=== PATIENT | female | born 1980 | race Caucasian/White ===

== ENCOUNTER 2022-07-22 12:08 | Emergency (ER) | payer BC, SELFPAY ==
[2022-07-22 12:29] VITALS: BP 155/92; PULSE 90; RESP 20; TEMP 36.7; O2SAT 100; BMI 45.3
--- NOTE | 2022-07-22 14:49 | XR_ITS ---
The [address] [address] Patient Name: RUTH PEDROZA MRN: [id number] date: 1980 Sex: F Assigned Patient Location: ER Current Patient Location: ER Accession/Order Number: [id number] Exam Date: 07/22/2022 15:04 Report Date: 07/22/2022 15:38 At the request of: AURELIANO CHAVEZ Procedure: XR knee AMY 3V STUDY: XR knee AMY 3V, [id number] HISTORY: pain COMPARISON: None FINDINGS: Right knee: No acute fracture, dislocation, or suspicious osseous lesion. Mild tricompartmental osteophytosis. No knee joint effusion. Left knee: No acute fracture, dislocation, or suspicious osseous lesion. Mild joint space narrowing and mild/moderate proptosis of the medial compartment. Mild osteophytosis of the lateral and patellofemoral compartments. No knee joint effusion. IMPRESSION: 1. No acute osseous abnormality. 2. Mild osteoarthritis of the right knee. 3. Mild/moderate osteoarthritis of the left knee, most notable in the medial compartment. Electronically authenticated by: CHITO MCCOY Date: 07/22/2022 15:38
--- NOTE | 2022-07-22 14:50 | ED.LOWEXI1 ---
HPI - Extremity Injury (Lower) General Chief Complaint: Extremity Injury, Lower Stated Complaint: lower extremity pain both knees Time Seen by Provider: 07/22/22 14:49 Source: patient Mode of arrival: walk-in Limitations: no limitations History of Present Illness HPI Narrative: Patient presents to emergency department complaining of bilateral knee pain. Patient states she saw her primary care doctor regarding the knee pain a month ago and had injections of prednisone for bursitis. She states it helped for about a week and then the pain returned and now it is out of control. Pain is worse on the left knee. She denies any trauma. She denies any edema, fever, chills. She has taken Tylenol and Motrin [id number] without any relief. She denies any paresthesias, or weakness. She is able to bear weight but states that it hurts. Pain is not worse when she is trying to climb steps, or go down steps. Related Data Previous Rx's Medication Instructions Recorded hydrocodone 5 mg-acetaminophen 325 1 tab PO Q6H PRN pain #10 tabs 07/22/22 mg tablet ketorolac 10 mg tablet 10 mg PO Q8H PRN pain 5 days #15 07/22/22 tabs Allergies Allergy/AdvReac Type Severity Reaction Status Date / Time lamotrigine [From Lamictal] Allergy Severe Rash Verified 07/22/22 12:29 Penicillins Allergy Severe Rash Verified 07/22/22 12:29 Review of Systems ROS Narrative ROS: Unless otherwise stated in this report the patient's positive and negative responses for review of systems for constitutional, eyes, ENT, cardiovascular, respiratory, gastrointestinal, neurological, , musculoskeletal and integument systems and related systems to the presenting problem are either stated in the history of present illness or were not pertinent or were negative for the symptoms and/or complaints related to the presenting medical problem. PFSH PFSH Social History Smoking status: Former smoker Exam Narrative Exam Narrative: Vital signs reviewed and nurse's notes. The patient is not hypoxic. General: obese, Alert, no acute distress, patient resting comfortably Skin: warm, intact, no pallor noted Head: Normocephalic, atraumatic Eye: Normal conjunctiva Respiratory: No acute distress Musculoskeletal: No evidence of deformity to Bilateral knees. There is amount of swelling. There is no ecchymosis. No erythema or warmth noted. DP and PT pulses are intact 2+. Normal sensation, normal capillary refill less than 2 seconds. There is no cyanosis or mottling noted. The patient has tenderness to of the right knee. The patient has no laxity with varus or valgus stressing. The patient has negative anterior drawer and Mile testing. The patient was able to flex and extend although with pain. Patient was able to extend leg off the cart without difficulty. No tenderness noted to the 5th MT, midfoot, ankle or proximal fibular area. There is no pain with calcaneal squeeze, achilles tendon is intact and no defect is palpated. The patient has no pelvic instability. The patient has no shortening or rotation noted to the bilateral lower extremities. Neurological: alert and orient x4, normal sensory and motor observed. Psychiatric: Cooperative Constitutional Vital Signs - 24 hr 07/22/22 12:29 Temperature 98.1 F Pulse Rate [Monitor] 90 Respiratory Rate 20 Blood Pressure [Left Arm] 155/92 H Pulse Oximetry 100 Oxygen Delivery Method Room Air Course Vital Signs Vital signs: Vital Signs Temperature 98.1 F 07/22/22 12:29 Pulse Rate 90 07/22/22 12:29 Respiratory Rate 20 07/22/22 12:29 Blood Pressure 155/92 H 07/22/22 12:29 Pulse Oximetry 100 07/22/22 12:29 Oxygen Delivery Method Room Air 07/22/22 12:29 Temperature 98.1 F 07/22/22 12:29 Pulse Rate 90 07/22/22 12:29 Respiratory Rate 20 07/22/22 12:29 Blood Pressure 155/92 H 07/22/22 12:29 Pulse Oximetry 100 07/22/22 12:29 Oxygen Delivery Method Room Air 07/22/22 12:29 MDM - Extremity Injury (Lower) MDM Narrative Medical decision making narrative: X-rays were ordered. X-rays show arthritis. All results were discussed with patient. Oarrs was checked and is appropriateTo write a short course of analgesics. The patient will follow up with primary care doctor. At this time the patient is without objective evidence of an acute process requiring hospitalization or inpatient management. The patient has remained hemodynamically stable. No additional indication for emergent studies at this time. I answered all questions. Discussed discharge instructions including standard anticipatory guidance and what should prompt a return to the emergency department, including if they get worse are not getting better or develops any new or concerning symptoms. I've given them specific time frame in which to follow-up, and who to follow-up with. The patient demonstrates understanding. Patient is nontoxic and stable for discharge with outpatient follow-up. This note was created with the assistance of a speech recognition program. Although the intention is to generate documents that actually reflects the content of the visit, no guarantees can be provided that every mistake has been identified and corrected by editing. Differential Diagnosis Differential diagnosis: Likely acute internal derangement of knee, fracture of femur and fracture of hip Discharge Plan Discharge Chief Complaint: Extremity Injury, Lower Clinical Impression: Osteoarthritis Patient Disposition: Home, Self-Care Time of Disposition Decision: 15:52 Condition: Good Prescriptions / Home Meds: New ketorolac 10 mg tablet 10 mg PO Q8H PRN (Reason: pain) 5 Days Qty: 15 0RF hydrocodone-acetaminophen 5-325 mg tablet 1 tab PO Q6H PRN (Reason: pain) Qty: 10 0RF Instructions: Osteoarthritis (ED) Stand Alone Forms: Portal Instructions Referrals: KRISTA CALLOWAY [Primary Care Provider] - 1 week Discharge Date/Time: 07/22/22 16:47
[2022-07-22] MEDS: HYDROCODONE/ACETAMINOPHEN 5-325 MG TABLET 1 TAB PO (15:04)
[2022-07-22 16:34] VITALS: BP 150/106; PULSE 84; RESP 14; O2SAT 99
== END 2022-07-22 16:47 | disposition home or self-care (01) ==
PROVIDERS: Emergency Provider Emergency Medicine; PCP Family Medicine
DX: M19.90 Unspecified osteoarthritis, unspecified site (principal); E66.9 Obesity, unspecified; Z87.891 Personal history of nicotine dependence; M17.0 Bilateral primary osteoarthritis of knee
CPT/HCPCS: 73562; 99283

== ENCOUNTER 2022-12-31 10:14 | Emergency (ER) | payer SELFPAY ==
[2022-12-31 10:20] VITALS: BP 150/77; PULSE 100; RESP 18; TEMP 36.7; O2SAT 98; BMI 44.6
[2022-12-31 11:01] VITALS: BP 148/87; PULSE 92; RESP 18; O2SAT 96
[2022-12-31 11:18] LABS: SARS-CoV-2 Ag NEGATIVE (NEGATIVE)
[2022-12-31 11:19] LABS: Influenza Virus A Antigen Negative; Influenza Virus B Antigen Negative; Internal Control Within Normal Limits
--- NOTE | 2022-12-31 11:32 | ED.URI1 ---
HPI - URI/Sore Throat General Chief Complaint: Upper Respiratory Infection Stated Complaint: URTI Time Seen by Provider: 12/31/22 10:20 Source: patient Limitations: no limitations History of Present Illness HPI Narrative: 5 days of nasal congestion, running nose, sinus drainage the persists despite trying jennifer seltzer prep, mucinex, flonase. No fever or chills but she admits to fatigue and muscle aches. No GI or symptoms. She is concerned that the infection might develop into asthmatic bronchitis . Related Data Previous Rx's Medication Instructions Recorded ketorolac 10 mg tablet 10 mg PO Q8H PRN pain 5 days #15 07/22/22 tabs cetirizine 5 mg-pseudoephedrine ER 1 tab PO Q12H PRN nasal congestion 12/31/22 120 mg tablet,extended #14 tabs release,12hr (Zyrtec-D) Allergies Allergy/AdvReac Type Severity Reaction Status Date / Time lamotrigine [From Lamictal] Allergy Severe Rash Verified 07/22/22 12:29 Penicillins Allergy Severe Rash Verified 07/22/22 12:29 PFSH PFSH Social History Smoking status: Former smoker Exam Narrative Exam Narrative: Nurses notes and vital signs reviewed and patient is not hypoxic. afebrile General: Well-appearing and in no apparent distress. Skin: Warm, dry, no pallor noted. No rash. Head: Normocephalic, atraumatic. Neck: Supple, non-tender. Eye: Pupils are equal, round and EOMI. No scleral icterus. Ears, Nose, Mouth, and Throat: TM are clear, moderate nasal mucosal hypertrophy. Oral mucosa is moist, no posterior oropharynx erythema, uvula is mid-line, post-nasal drip noted. Cardiovascular: Regular Rate and Rhythm without murmur, gallop or rub. Respiratory: No accessory muscle use or respiratory distress. Lungs are clear to auscultation, no wheezing, rales or rhonchi Musculoskeletal: normal ROM Neurological: A&O x4. No cranial nerve dysfunction observed. No truncal ataxia. Moves all extremities. Sensation intact. Psychiatric: Cooperative and interactive. Normal mood and affect. Constitutional Vital Signs, click to edit/add: Last Vital Signs Temp 98.1 F 12/31/22 10:20 Pulse 92 H 12/31/22 11:01 Resp 18 12/31/22 11:01 BP 148/87 H 12/31/22 11:01 Pulse Ox 96 12/31/22 11:01 O2 Del Method Room Air 12/31/22 10:20 Course Vital Signs Vital signs: Vital Signs Temperature 98.1 F 12/31/22 10:20 Pulse Rate 100 H 12/31/22 10:20 Respiratory Rate 18 12/31/22 10:20 Blood Pressure 150/77 H 12/31/22 10:20 Pulse Oximetry 98 12/31/22 10:20 Oxygen Delivery Method Room Air 12/31/22 10:20 Temperature 98.1 F 12/31/22 10:20 Pulse Rate 92 H 12/31/22 11:01 Respiratory Rate 18 12/31/22 11:01 Blood Pressure 148/87 H 12/31/22 11:01 Pulse Oximetry 96 12/31/22 11:01 Oxygen Delivery Method Room Air 12/31/22 10:20 MDM - URI/Sore Throat MDM Narrative Medical decision making narrative: covid and influenza swabs were negative. Patient informed of results, diagnosis discussed and treatment recommendations discussed. Patient prescribed zyrtec-D. ED return if she worsens Lab Data Labs: Lab Results 12/31/22 Range/Units 10:44 SARS-CoV-2 (PCR) Negative (NEGATIVE) Influenza Type A Ag Negative Influenza Type B Ag Negative Discharge Plan Discharge Chief Complaint: Upper Respiratory Infection Clinical Impression: Upper respiratory infection Patient Disposition: Home, Self-Care Time of Disposition Decision: 11:35 Prescriptions / Home Meds: New cetirizine-pseudoephedrine [Zyrtec-D] 5-120 mg tablet extended release 12 hr 1 tab PO Q12H PRN (Reason: nasal congestion) Qty: 14 0RF No Action ketorolac 10 mg tablet 10 mg PO Q8H PRN (Reason: pain) 5 Days Qty: 15 0RF Instructions: Upper Respiratory Infection (ED) Stand Alone Forms: Portal Instructions Referrals: KRISTA CALLOWAY [Primary Care Provider] - 1 week
[2022-12-31 11:35] VITALS: BP 131/88; PULSE 92; RESP 18; O2SAT 96
[2023-01-02 10:05] LABS: SARS-CoV-2 NAA INVALID (NOT DETECTE)
== END 2022-12-31 11:44 | disposition home or self-care (01) ==
PROVIDERS: Emergency Provider Emergency Medicine; PCP Family Medicine
DX: J06.9 Acute upper respiratory infection, unspecified (principal); Z87.891 Personal history of nicotine dependence; Z20.822 Contact with and (suspected) exposure to COVID-19
CPT/HCPCS: 87635; 87804; 87811; 99283

== ENCOUNTER 2024-01-05 07:45 | Emergency (ER) | payer SELFPAY ==
[2024-01-05 07:47] VITALS: BP 155/93; PULSE 88; TEMP 36.5; BMI 44.6
--- NOTE | 2024-01-05 08:01 | CT_ITS ---
The [address] [address] Patient Name: RUTH PEDROZA MRN: [id number] date: 1980 Sex: F Assigned Patient Location: ER Current Patient Location: .MAIN Accession/Order Number: [id number] Exam Date: 01/05/2024 08:20 Report Date: 01/05/2024 08:58 At the request of: RICHARD KIM Procedure: CT abdomen pelvis wo con CT ABDOMEN AND PELVIS WITHOUT CONTRAST: 01/05/2024 8:20 AM EST Clinical Data: right flank pain Comparison: No previous Unenhanced helically acquired data per protocol. The lack of IV contrast material hampers evaluation of the viscera, for adenopathy, and of the vasculature. The lack of oral contrast medium to some extent hampers evaluation of the bowel. All CT scans at this facility use dose modulation, iterative reconstruction, and/or weight based dosing when appropriate to reduce radiation dose to as low as reasonably achievable. FINDINGS: LOWER THORAX: Unremarkable. LIVER: Moderate to significant fatty infiltration with thin areas of relative sparing near the gallbladder fossa SPLEEN: No acute findings. GB/BILIARY: No acute findings at CT. PANCREAS: No acute findings. ADRENALS: No acute findings. KIDNEYS/URETERS: Exam on the left is negative. On the right there is asymmetric perinephric stranding. No right renal calculi. Modest right hydronephrosis and hydroureter to the UVJ. At the lip of the UVJ there a thin calculus measuring 3 mm in long axis but it is fairly thin in other dimensions. VESSELS: No AAA ABDOMINAL NODES: No obvious adenopathy. PELVIC NODES: Several nonenlarged nodes on both sides. Several are somewhat fatty replaced. There is a 14 mm distal right external iliac node. This is larger than its left-sided counterpart which measures approximately 8 mm. There are a few nonenlarged inguinal nodes bilaterally. BLADDER: Nearly empty. REPRODUCTIVE: Uterus is absent. The ovaries are not readily apparent as distinct structures PERITONEUM: No free air. No free fluid. EXTRAPERITONEUM: No acute findings. BOWEL: No GI obstruction. No focally thickened loop of bowel is evident the appendix is unremarkable. BODY WALL: No acute findings. BONES: No acute findings. OTHER: No acute findings. CT/CT abdomen pelvis wo con IMPRESSION: 1. Modest right hydronephrosis and hydroureter. At the lip of the UVJ there is a 3 mm calculus but this is fairly thin in other dimensions. 2. Moderate to significant fatty infiltration of liver. 3. Asymmetric mildly prominent distal right external iliac node is nonspecific. Electronically authenticated by: FARHANA LAZCANO Date: 01/05/2024 08:58
[2024-01-05 08:14] LABS: Basophils Absolute Auto 0.1 10^3/uL (0.0-0.1); Basophils Percent Auto 0.8 % (0.2-2.0); Eosinophils Absolute Auto 0.2 10^3/uL (0.0-0.7); Hematocrit 39.8 % (36.0-48.0); Hemoglobin 12.9 g/dL (12.0-16.0); Immature Granulocytes Abs Auto 0.04 10^3/uL (0.00-0.03); Immature Granulocytes Pct Auto 0.4 % (0.0-0.5); Lymphocytes Absolute Auto 1.8 10^3/uL (1.2-3.8); Lymphocytes Percent Auto 15.6 % (20.5-60.0); Mean Corpuscular HGB Conc 32.4 g/dL (29.9-35.2); Mean Corpuscular Hemoglobin 28.7 pg (26.7-34.0); Mean Corpuscular Volume 88.6 fL (81.0-99.0); Mean Platelet Volume 9.7 fL (9.5-13.5); Monocytes Absolute Auto 0.7 10^3/uL (0.3-0.8); Monocytes Percent Auto 6.5 % (1.7-12.0); Neutrophils Absolute Auto 8.4 10^3/uL (1.4-6.5); Neutrophils Percent Auto 74.7 % (43.0-75.0); Platelet Count 310 10^3/uL (150-450); Red Blood Count 4.49 10^6/uL (4.20-5.40); Red Cell Distribution Width 12.2 % (11.0-15.0); White Blood Count 11.3 10^3/uL (4.0-11.0)
[2024-01-05] MEDS: ONDANSETRON PF 4 MG/2 ML VIAL IV (08:14)
[2024-01-05 08:15] LABS: Bilirubin Urine NEGATIVE (NEGATIVE); Blood Urine NEGATIVE (NEGATIVE); Clarity Urine CLEAR (CLEAR); Color Urine LT. YELLOW (YELLOW); Glucose Urine UA NEGATIVE (NEGATIVE); Ketones Urine NEGATIVE (NEGATIVE); Leukocyte Esterase Urine NEGATIVE (NEGATIVE); Nitrite Urine NEGATIVE (NEGATIVE); Protein Urine NEGATIVE (NEG/TRACE); Specific Gravity Urine 1.025 (1.005-1.025); Urobilinogen Urine 0.2 EU/dL (0.2-1.0); pH Urine 5.5 (5.0-9.0)
[2024-01-05] MEDS: KETOROLAC TROMETHAMINE 30 MG/ML VIAL 15 MG IVP (08:15)
[2024-01-05 08:17] LABS: Urine Microscopic Indicated NO
[2024-01-05 08:28] LABS: Alanine Aminotransferase 27 U/L (14-59); Albumin Level 3.7 g/dL (3.4-5.0); Alkaline Phosphatase 178 U/L (46-116); Aspartate Amino Transferase 18 U/L (15-37); BUN Creatinine Ratio 11.8; Bilirubin Total 0.3 mg/dL (0.2-1.0); Calcium 8.7 mg/dL (8.5-10.1); Carbon Dioxide 26.3 mmol/L (21.0-32.0); Chloride 106 mmol/L (98-107); Estimated GFR (African America 59 (>=60 mL/min/1.73m^2); Estimated GFR (Non-African Ame 49 (>=60 mL/min/1.73m^2); Globulin 3.7 g/dL; Glucose 139 mg/dL (74-106); Potassium 4.3 mmol/L (3.5-5.1); Sodium 142 mmol/L (136-145); Total Protein 7.4 g/dL (6.4-8.2)
[2024-01-05 08:47] LABS: HCG Qualitative POSITIVE (NEGATIVE)
[2024-01-05 08:48] LABS: Internal Control Within Normal Limits
--- NOTE | 2024-01-05 08:51 | ED.BACK1 ---
HPI HPI - Back Pain/Injury General Chief Complaint: Back Pain/Injury Stated Complaint: LOWER BACK PAIN Time Seen by Provider: 01/05/24 07:54 Source: patient Mode of arrival: walk-in Limitations: no limitations History of Present Illness HPI Narrative: The patient woke up this morning with a right-sided flank pain that radiated to the groin area, mentioned that the pain associated with nausea no fever no chills but she does have some urgency when urinating Patient denies any fever chills and she also denies any cough or any other complaints Patient have no history of trauma or fall Related Data Home Medications ?Medication ?Instructions ?Recorded ?Confirmed aripiprazole 10 mg tablet 10 mg PO DAILY 01/05/24 01/05/24 sertraline 50 mg tablet 50 mg PO DAILY 01/05/24 01/05/24 Previous Rx's ?Medication ?Instructions ?Recorded cetirizine 5 mg-pseudoephedrine ER 1 tab PO Q12H PRN nasal congestion 12/31/22 120 mg tablet,extended #14 tabs release,12hr (Zyrtec-D) ondansetron 4 mg disintegrating 4 mg PO Q8H PRN nausea and 01/05/24 tablet vomiting 48 hours #10 tabs tamsulosin 0.4 mg capsule (Flomax) 0.4 mg PO DAILY #10 caps 01/05/24 tramadol 50 mg tablet 50 mg PO Q8H PRN pain 3 days #9 01/05/24 tabs Allergies Allergy/AdvReac Type Severity Reaction Status Date / Time lamotrigine (From Lamictal) Allergy Severe Rash Verified 01/05/24 07:53 Penicillins Allergy Severe Rash Verified 01/05/24 07:53 walnut AdvReac Severe heart burn Verified 01/05/24 07:53 Opioid HPI Opioid Management Most Recent Opioid Data: Last APR Pain Assessment 01/05/24 08:15 Review of Systems ROS Status of ROS 10 or more systems reviewed and unremarkable except as noted in history and below PFSH PFSH Social History Smoking status: Former smoker Little interest or pleasure in doing things: not at all Feeling down, depressed, or hopeless: not at all Exam Narrative Exam Narrative: Nurses notes and vital signs reviewed and patient is not hypoxic. General: Well-appearing and in no apparent distress. Skin: Warm, dry, no pallor noted. No rash. Head: Normocephalic, atraumatic. Neck: Supple, non-tender. Eye: Pupils are equal, round and EOMI. No scleral icterus. Ears, Nose, Mouth, and Throat: TM are clear, no nasal mucosal hypertrophy. Oral mucosa is moist, no posterior oropharynx erythema, uvula is mid-line Cardiovascular: Regular Rate and Rhythm without murmur, gallop or rub. Respiratory: No accessory muscle use or respiratory distress. Lungs are clear to auscultation, no wheezing, rales or rhonchi Chest Wall: no tenderness Back: No midline thoracic or lumbar vertebral tenderness. Right CVA tenderness Musculoskeletal: normal ROM, no calf or popliteal tenderness, no lower extremity edema/swelling GI: Abdomen is soft, non-distended. Normal bowel sounds. No masses appreciated. No tenderness to palpation. No rebound, guarding, or rigidity noted. Neurological: A&O x4. No cranial nerve dysfunction observed. No truncal ataxia. Moves all extremities. Sensation intact. Psychiatric: Cooperative and interactive. Normal mood and affect. Constitutional Vital Signs, click to edit/add: Last Vital Signs Temp 97.7 F 01/05/24 07:47 Pulse 88 01/05/24 07:47 Resp 99 H 01/05/24 07:47 BP 155/93 H 01/05/24 07:47 Course Vital Signs Vital signs: Vital Signs Temperature 97.7 F 01/05/24 07:47 Pulse Rate 88 01/05/24 07:47 Respiratory Rate 99 H 01/05/24 07:47 Blood Pressure 155/93 H 01/05/24 07:47 Temperature 97.7 F 01/05/24 07:47 Pulse Rate 88 01/05/24 07:47 Respiratory Rate 99 H 01/05/24 07:47 Blood Pressure 155/93 H 01/05/24 07:47 MDM - Back Pain/Injury MDM Narrative Medical decision making narrative: The patient CBC shows no significant leukocytosis chemistry shows mild increase in the creatinine The patient was instructed about hydration and her urine did not show any infection Right now the patient had a CAT scan showing moderate hydronephrosis in addition to an obstructing 3 mm kidney stone at the UV junction The patient was instructed about hydration she was also instructed about monitoring her symptoms she was feeling much better after initial treatment she will be monitoring for fever or any increasing pain The patient was discharged with Flomax and urine strainer in addition to tramadol for pain control She also was referred to the urology as outpatient she is to come back to the ER in case of any fever chills or increasing She was instructed about the importance of follow-up with urology for further evaluation The patient is to follow up with primary care physician in next 2-3 days or to return to the emergency department should any of the signs or symptoms worsen or new symptoms develop. The patient agrees with the following Diagnosis and Treatment plan and the patient will be discharged home. Lab Data Labs: Lab Results 01/05/24 Range/Units 08:07 WBC 11.3 H (4.0-11.0) 10^3/uL RBC 4.49 (4.20-5.40) 10^6/uL Hgb 12.9 (12.0-16.0) g/dL Hct 39.8 (36.0-48.0) % MCV 88.6 (81.0-99.0) fL MCH 28.7 (26.7-34.0) pg MCHC 32.4 (29.9-35.2) g/dL RDW 12.2 (11.0-15.0) % Plt Count 310 (150-450) 10^3/uL MPV 9.7 (9.5-13.5) fL Neut % (Auto) 74.7 (43.0-75.0) % Lymph % (Auto) 15.6 L (20.5-60.0) % [place] % (Auto) 6.5 (1.7-12.0) % Eos % (Auto) 2.0 (0.9-7.0) % Baso % (Auto) 0.8 (0.2-2.0) % Neut # (Auto) 8.4 H (1.4-6.5) 10^3/uL Lymph # (Auto) 1.8 (1.2-3.8) 10^3/uL [place] # (Auto) 0.7 (0.3-0.8) 10^3/uL Eos # (Auto) 0.2 (0.0-0.7) 10^3/uL Baso # (Auto) 0.1 (0.0-0.1) 10^3/uL Abs Immat Gran (auto) 0.04 H (0.00-0.03) 10^3/uL Imm/Tot Granulo (auto) 0.4 (0.0-0.5) % Sodium 142 (136-145) mmol/L Potassium 4.3 (3.5-5.1) mmol/L Chloride 106 (98-107) mmol/L Carbon Dioxide 26.3 (21.0-32.0) mmol/L Anion Gap 14.0 BUN 14.0 (7.0-18.0) mg/dL Creatinine 1.19 H (0.55-1.02) mg/dL Est GFR ( Amer) 59 L (>=60 mL/min/1.73m^2) Est GFR (Non-Af Amer) 49 L (>=60 mL/min/1.73m^2) BUN/Creatinine Ratio 11.8 Glucose 139 H (74-106) mg/dL Calcium 8.7 (8.5-10.1) mg/dL Total Bilirubin 0.3 (0.2-1.0) mg/dL AST 18 (15-37) U/L ALT 27 (14-59) U/L Alkaline Phosphatase 178 H (46-116) U/L Total Protein 7.4 (6.4-8.2) g/dL Albumin 3.7 (3.4-5.0) g/dL Globulin 3.7 g/dL Albumin/Globulin Ratio 1.0 Serum HCG, Qual Positive A (NEGATIVE) Urine Color Lt. yellow (YELLOW) Urine Clarity Clear (CLEAR) Urine pH 5.5 (5.0-9.0) Ur Specific [place] 1.025 (1.005-1.025) Urine Protein Negative (NEG/TRACE) mg/dL Urine Glucose (UA) Negative (NEGATIVE) mg/dL Urine Ketones Negative (NEGATIVE) mg/dL Urine Occult Blood Negative (NEGATIVE) Urine Nitrite Negative (NEGATIVE) Urine Bilirubin Negative (NEGATIVE) Urine Urobilinogen 0.2 (0.2-1.0) EU/dL Ur Leukocyte Esterase Negative (NEGATIVE) Discharge Plan Discharge Chief Complaint: Back Pain/Injury Clinical Impression: Kidney calculus, Hydronephrosis Patient Disposition: Home, Self-Care Time of Disposition Decision: 09:32 Condition: Good Prescriptions / Home Meds: New tamsulosin [Flomax] 0.4 mg capsule 0.4 mg PO DAILY Qty: 10 0RF ondansetron 4 mg tablet,disintegrating 4 mg PO Q8H PRN (Reason: nausea and vomiting) 2 Days Qty: 10 0RF tramadol 50 mg tablet 50 mg PO Q8H PRN (Reason: pain) 3 Days Qty: 9 0RF Discontinued ketorolac 10 mg tablet 10 mg PO Q8H PRN (Reason: pain) 5 Days Qty: 15 0RF No Action cetirizine-pseudoephedrine [Zyrtec-D] 5-120 mg tablet extended release 12 hr 1 tab PO Q12H PRN (Reason: nasal congestion) Qty: 14 0RF aripiprazole 10 mg tablet 10 mg PO DAILY sertraline 50 mg tablet 50 mg PO DAILY Print Language: Singaporean Instructions: Kidney Stones (ED), How to Strain Your Urine (ED), Hydronephrosis (ED) Referrals: Estrellita Caldera MD [Physician] - As soon as possible (please call sunday ) KRISTA CALLOWAY [Primary Care Provider] - 1 week Discharge Date/Time: 01/05/24 09:48
== END 2024-01-05 09:48 | disposition home or self-care (01) ==
PROVIDERS: Emergency Provider Emergency Medicine; PCP Family Medicine
DX: N13.2 Hydronephrosis with renal and ureteral calculous obstruction (principal); Z87.891 Personal history of nicotine dependence
CPT/HCPCS: 36415; 74176; 80053; 81003; 84703; 85025; 96374; 96375; 99285; J1885; J2405

== ENCOUNTER 2024-09-12 22:25 | Emergency (ER) | payer OTHER, SELFPAY ==
[2024-09-12 22:28] VITALS: BP 142/81; PULSE 89; TEMP 37; O2SAT 96; BMI 43.8
--- OUTSIDE RECORDS SUMMARY | 2024-09-12 22:34 | XMS_ITS | Encounter Summary ---
Author Organization [facility] Address [address] [place] [address] Care Team Providers Care Manager Of Procurement Name Role Phone Telma Irvin MD Primary Care Provider [phone] Encounter Details Date Type Department Care Team (Late st Contact Info) Description 07/24/2022 [facility] [address] [facility] [place] [address] Telma Irvin MD [address] [place], [place] [id number] Social History Tobacco Use Types Packs/Day Years Used Date Smoking Tobacco: Former Cigarettes 2013 Smokeless Tobacco: Never Alcohol Use Standard Drinks/Week Comments Yes 1 (1 standard drink = 0.6 oz pur e alcohol) Humiliation, Afraid, Rape, and Kick questionnair e Answer Date Recorded Within the last year, have y ou been afraid of your partner or ex-partner? No 07/09/2022 Within the last year, have y ou been humiliated or emotionally abused in other ways by your partner or ex-partner? No Within the last year, have y ou been kicked, hit, slapped, or otherwise physically hurt by your partner or ex-partner? No 07/09/2022 Within the last year, have y ou been raped or forced to have any kind of sexual activity by your partner or ex-partner? No 07/09/2022 Social Connection and Isolat ion Panel [NHANES] Answer Date Recorded In a typical week, how many times do you talk on the phone with family, friends, or neighbors? More than three times a week 07/09/2022 How often do you get togethe r with friends or relatives? Twice a week 07/09/2022 How often do you attend chur or christian services? Patient declined 07/09/2022 Do you belong to any clubs o r organizations such as catholic groups, unions, fraternal or athletic groups, or school groups? Patient declined 07/09/2022 How often do you attend meet ings of the clubs or organizations you belong to? Patient declined 07/09/2022 Are you , , di vorced, , never , or living with a partner? 07/09/2022 AUDIT-C Answer Date Recorded Q1: How often do you have a drink containing alc ohol? Monthly or less 07/10/2022 Q2: How many drinks containi ng alcohol do you have on a typical day when you are drinking? 1 or 2 07/10/2022 Q3: How often do you have si x or more drinks on one occasion? Less than monthly 07/10/2022 Overall Financial Resource Strain (CARDIA) Answe r Date Recorded How hard is it for you to pa y for the very basics like food, housing, medical care, and heating? Somewhat hard 07/09/2022 [facility] Occupat ional Health - Occupational Stress Questionnaire Answer Date Recorded Do you feel stress - tense, restless, nervous, or anxious, or unable to sleep at night because your mind is troubled all the time - these days? Not at all 07/09/2022 Exercise Vital Sign Answer Date Recorde d On average, how many days pe r week do you engage in moderate to strenuous exercise (like a brisk walk)? 4 days 07/09/2022 On average, how many minutes do you engage in exercise at this level? 30 min 07/09/2022 Hunger Vital Sign Answer Date Recorded Within the past 12 months, y ou worried that your food would run out before you got the money to buy more. Never true 07/10/19 23 Within the past 12 months, t he food you bought just didn't last and you didn't have money to get more. Never true 07/09/2022 PRAPARE - Transportation Answer Date Re corded In the past 12 months, has l ack of transportation kept you from medical appointments or from getting medications? No 06/20 In the past 12 months, has l ack of transportation kept you from meetings, work, or from getting things needed for daily living? No 07/09/2022 Housing Stability Vital Sign Answer Geo e Recorded In the last 12 months, was t here a time when you were not able to pay the mortgage or rent on time? Yes 07/09/2022 In the last 12 months, how many places have you lived? 1 07/09/2022 In the last 12 months, was t here a time when you did not have a steady place to sleep or slept in a usp (including now)? No 07/09/2022 Comments Unknown Sex and Gender Information Value Date Recorded Sex Assigned at Female 07/06/2022 1:59 PM EDT Legal Sex Female 7:19 PM EDT Gender Identity Not on file Sexual Orientation Burgess 07/06/2022 1: 59 PM EDT COVID-19 Exposure Response Date Recorded In the last 10 days, have yo u been in contact with someone who was confirmed or suspected to have Coronavirus/COVID-19? No / Unsure 07/24/2022 10:39 AM EDT documented as of this encounter Plan of Treatment Upcoming Encounters Date Type Department Care Team (Late st Contact Info) Description 09/29/2024 9:00 AM EDT Office Visit [facility] [address] [place] [address] Karan Cruz NP [address] [place], [place] [phone] documented as of this encounter Visit Diagnoses Not on filedocumented in this encounter Care Teams Manager Of Procurement Relationship Specialty Start Date End Date Telma Irvin MD [address] [place] [address] PCP - General Family Medicine 07/10/22 documented as of this encounter
--- OUTSIDE RECORDS SUMMARY | 2024-09-12 22:34 | XMS_ITS | Encounter Summary ---
Author Organization [facility] Address [address] [facility] [place] [address] Care Team Providers Care Guyline Operator Name Role Phone Telma Irvin MD Primary Care Provider [phone] Encounter Details Date Type Department Care Team (Late st Contact Info) Description 01/[facility]2023 [facility] [address] [place] [address] Telma Irvin MD [address] [place], [place] [id number] Social History Tobacco Use Types Packs/Day Years Used Date Smoking Tobacco: Former Cigarettes 2013 Smokeless Tobacco: Never Alcohol Use Standard Drinks/Week Comments Yes 1 (1 standard drink = 0.6 oz pure alcohol) caffeine intake : 2-3 cups per day Humiliation, Afraid, Rape, and Kick questionnair e [...] How often do you attend chur or mandaeism services? Patient declined 07/09/2022 Do you belong to any clubs o r organizations such as yarsanism groups, unions, fraternal or athletic groups, or [...] medical care, and heating? Somewhat hard 07/09/2022 [facility] of Occupat ional Health - Occupational Stress [...] place to sleep or slept in a fdc (including now)? No 07/09/2022 Education Answer Date Recorded What is the highest level of school you have completed or the highest degree you have received? 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 be working at [employer] Not on file Not on file Not on file documented as of this encounter Plan of Treatment Upcoming Encounters Date Type Department Care Team (Late st Contact Info) Description 09/29/2024 9:00 AM EDT Office Visit [facility] [address] [place] [address] Karan Cruz NP [address] [place], [place] [phone] documented as of this encounter Visit Diagnoses Not on filedocumented in this encounter Care Teams Guyline Operator Relationship Specialty Start Date End Date Telma Irvin MD [address] [place] [address] PCP - General Family Medicine 07/10/22 documented as of this encounter
--- OUTSIDE RECORDS SUMMARY | 2024-09-12 22:34 | XMS_ITS | Encounter Summary ---
Author Organization [facility] Address [address] [facility] [place] [address] Care Team Providers Care Able Seaman Name Role Phone Telma Irvin MD Primary Care Provider [phone] Encounter Details Date Type Department Care Team (Late st Contact Info) Description 01/05/2024 [facility] [address] [facility] [place] [address] Telma Irvin MD [address] [place], [place] [phone] Social History Tobacco Use Types Packs/Day Years Used Date Smoking Tobacco: Former Cigarettes 2013 Smokeless Tobacco: Never Alcohol Use Standard Drinks/Week Comments Yes 1 (1 standard drink = 0.6 oz pure alcohol) caffeine intake : 2-3 cups per day [id number] Health Literacy Answer Date Recor ded How often do you need to hav e someone help you when you read instructions, pamphlets, or other written material from your doctor or pharmacy? Sometimes 01/08/2024 Humiliation, Afraid, Rape, and Kick questionnair e [...] neighbors? More than three times a week 01/08/2024 How often do you get togethe r with friends or relatives? Once a week 01/08/2024 How often do you attend chur or adventist services? Never 01/08/2024 Do you belong to any clubs o r organizations such as druze groups, unions, fraternal or athletic groups, or school groups? Patient declined 01/08/2024 How often do you attend meet ings of the clubs or organizations you belong to? Patient declined 01/08/2024 Are you , , di vorced, , never , or living with a partner? 01/08/2024 AUDIT-C Answer Date Recorded Q1: How often do you have a drink containing alc ohol? Monthly or less 01/08/2024 Q2: How many drinks containi ng alcohol do you have on a typical day when you are drinking? 1 or 2 01/08/2024 Q3: How often do you have si x or more drinks on one occasion? Never 01/08/2024 Overall Financial Resource Strain (CARDIA) Answe r Date Recorded How hard is it for you to pa y for the very basics like food, housing, medical care, and heating? Somewhat hard 01/08/2024 PHQ-2 Answer Date Recorded Patient Health Questionnaire-2 Score 0 01/09/2024 [facility] of Occupat ionct Health - Occupational Stress Questionnaire Answer Date Recorded Do you feel stress - tense, restless, nervous, or anxious, or unable to sleep at night because your mind is troubled all the time - these days? Not at all 01/08/2024 Exercise Vital Sign Answer Date Recorde d On average, how many days pe r week do you engage in moderate to strenuous exercise (like a brisk walk)? 2 days 01/08/2024 On average, how many minutes do you engage in exercise at this level? 10 min 01/08/2024 Hunger Vital Sign Answer Date Recorded Within the past 12 months, y ou worried that your food would run out before you got the money to buy more. Sometimes true Within the past 12 months, t he food you bought just didn't last and you didn't have money to get more. Never true PRAPARE - Transportation Answer Date Re corded In the past 12 months, has l ack of transportation kept you from medical appointments or from getting medications? No 12/20 In the past 12 months, has l ack of transportation kept you from meetings, work, or from getting things needed for daily living? No 01/08/2024 Housing Stability Vital Sign Answer Geo e [...] place to sleep or slept in a detention (including now)? No 07/09/2022 Housing Stability Vital Sign Answer Geo e Recorded In the last 12 months, was t here a time when you were not able to pay the mortgage or rent on time? Yes 01/08/2024 In the past 12 months, how m any times have you moved where you were living? 1 01/08/2024 At any time in the past 12 m [facility], were you homeless or living in a detention (including now)? No 01/08/2024 Education Answer Date Recorded What is the [...] Self- employed Possibly will be working at [employer] Not on file Not on file Not on file documented as of this encounter Functional Status * Audit-C Score Answer Date of Assessment Author 1 01/08/2024 11:57 AM EST Mychart, Generic * Q1: How often do you have a drink containing alcohol? Answer Date of Assessment Author Monthly or less 01/08/2024 11:57 AM EST Mychart, Generic * Q2: How many drinks containing alcohol do you have on a typical day when you are drinking? Answer Date of Assessment Author 1 or 2 01/08/2024 11:57 AM EST Mychart, Generic * Q3: How often do you have six or more drinks on one occasion? Answer Date of Assessment Author Never 01/08/2024 11:57 AM EST Mychart, Generic documented as of this encounter Plan of Treatment Upcoming Encounters Date Type Department Care Team (Late st Contact Info) Description 09/29/2024 9:00 AM EDT Office Visit [facility] [address] [place] [address] Karan Cruz NP [address] [place] [address] documented as of this encounter Visit Diagnoses Not on filedocumented in this encounter Care Teams Able Seaman Relationship Specialty Start Date End Date Telma Irvin MD [address] [place], [place] [phone] PCP - General Family Medicine 07/10/22 documented as of this encounter
--- OUTSIDE RECORDS SUMMARY | 2024-09-12 22:34 | XMS_ITS | Encounter Summary ---
Author Organization [facility] Address [address] [facility] [place] [address] Care Team Providers Care Centrifugal Operator Name Role Phone Telma Irvin MD Primary Care Provider [phone] Reason for Visit * Reason Comments Med Refill Encounter Details Date Type Department Care Team ([facility] st Contact Info) Description 11/25/2022 Refill [facility] [address] [place] [id number] Telma Irvin MD [address] [place] [address] Bipolar affective disorder, currently depressed, moderate (HCC) Social History Tobacco Use Types Packs/Day Years [...] 07/09/2022 How often do you attend chur ch or adventism services? Patient declined 07/09/2022 Do you belong to any clubs o r organizations such as jewish groups, unions, fraternal or athletic groups, or [...] medical care, and heating? Somewhat hard 07/09/2022 [facility] of Occupat ional Health - Occupational Stress [...] place to sleep or slept in a snf (including now)? No 07/09/2022 Education Answer Date [...] Self- employed Possibly will be working at [employer] Not on file Not on file Not on file documented as of this encounter Miscellaneous Notes * Telephone Encounter - Telma Irvin MD - 11/27/2022 8:41 AM EDT Approvals with refills documented in this encounter Plan of Treatment Upcoming Encounters Date Type Department Care Team (Late st Contact Info) Description 09/29/2024 9:00 AM EDT Office Visit [facility] [address] [place] [phone] Karan Cruz NP [address] [place], [place] [phone] documented as of this encounter Visit Diagnoses Diagnosis Bipolar affective disorder, currently depressed, moderate (HCC) Bipolar I disorder, most recent episode (or current) depressed, moderate documented in this encounter Care Teams Centrifugal Operator Relationship Specialty Start Date End Date Telma Irvin MD [address] [place] [address] PCP - General Family Medicine 07/10/22 documented as of this encounter
--- OUTSIDE RECORDS SUMMARY | 2024-09-12 22:34 | XMS_ITS | Clinical Summary ---
Author Organization [facility] Healthcare Address [address] [place] [address] Care Team Providers Care Trust Administrator Name Role Phone Telma Irvin MD Primary Care Provider [phone] Allergies Active Allergy Reactions Criticality Noted Date Comments Lamotrigine Rash Low 07/10/2022 Penicillins Rash Low 07/10/2022 Medications ondansetron ODT (Zofran-ODT) 4 MG disintegrating tablet DISSOLVE 1 (ONE) TABLET on the tongue EVERY 8 HOURS NEEDED FOR NAUSEA AND VOMITING 4 Active tamsulosin (Flomax) 0.4 MG 24 hr capsule Take 0.4 mg by mouth Daily 4 Active traMADol (Ultram) 50 MG tablet Take 50 mg by mouth every 8 (eight) hours if needed 4 Active glucosamine-chondro itin 500-400 MG tablet Take 1 tablet by mouth in the morning and 1 tablet in the evening and 1 tablet before bedtime. Active ARIPiprazole (Abilify) 10 MG tabletIndications:B ipolar I disorder, current or most recent episode depressed, in partial remission (HCC) Take 1 tablet (10 mg) by mouth Daily 90 tablet 11 4 12/30/19 27 Active sertraline (Zoloft) 100 MG tabletIndications:B ipolar affective disorder, currently depressed, moderate (HCC) Take 1 tablet (100 mg) by mouth in the morning. 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 Status post total abdominal hysterectomy and bilateral salpingo-oophorectomy 04/05/2023 Bilateral knee pain 09/08/2022 Knee pain with internal derangement determined b y x-ray 09/08/2022 Internal derangement of left knee 07/10/2022 Abnormal uterine bleeding 07/09/2022 Adnexal cyst 07/09/2022 Genital warts 07/09/2022 Allergic rhinitis due to pollen 07/09/2022 Allergy to dog dander 07/09/2022 Bipolar I disorder, current or most recent episode depressed, in partial remission 07/09/2022 Contracture, right ankle 07/09/2022 Incontinence 07/09/2022 Internal derangement of right knee 07/09/2022 Irritable bowel syndrome with diarrhea Irregular bleeding 07/09/2022 Liver nodule 07/09/2022 Other chronic pain 07/09/2022 Primary insomnia 07/09/2022 Resolved Problems Problem Noted Date Diagnosed Date Resolved Date Dysmenorrhea 07/09/2022 07/09/2022 Anxiety 07/09/2022 07/09/2022 Asthmatic bronchitis 07/09/2022 08/14/2 023 Chronic bronchitis with prod uctive mucopurulent cough 07/09/2022 07/09/2022 COVID-19 07/09/2022 07/09/2022 Lung nodule 07/09/2022 07/09/2022 Second hand smoke exposure 07/09/2022 0 07/09/2022 Encounters Date Type Department Care Team Description 08/21/2024 Telephone [facility] [address] [place] [address] Karan Cruz, HOTEL GUEST SERVICE AGENT asking about pain medication 06/26/2024 1:45 PM EDT Ancillary Procedure [facility] [address] [place] [address] 06/26/2024 1:40 PM EDT Ancillary Procedure [facility] [address] [place] [address] 06/26/2024 1:30 PM EDT Office Visit [facility] [place] [address] Karan Cruz, HOTEL GUEST SERVICE AGENT Primary osteoarthritis of left knee (Primary Dx); Right knee pain, unspecified chronicity; Left knee pain, unspecified chronicity; Primary osteoarthritis of right knee 06/26/2024 Bamboo flowsheet [facility] [address] [facility] [place] [address] Karan Cruz NP 06/26/2024 Travel from Last 3 Months Immunizations Immunization Administration Dates Next Due Tdap 06/14/2018 Family History Medical History Relation Name Comments No Known Problems Brother Diabetes Father Joe Hyperlipidemia Father Joe Prostate cancer Father Joe hypertension Father Joe Stroke Maternal Grandfather Vikas Asthma Mother Tanja Depression Mother Tanja takes Effexor Mental illness Mother Tanja Anxiety disorder Mother's Sister Patricia Depression Mother's Sister Patricia Cancer Paternal Grandmother Samantha No Known Problems Sister Relation Name Status Comments Brother Alive 2 brothers Father Joe Alive Maternal Grandfather Vikas Maternal Grandmother Mother Tanja Alive Mother's Sister Patricia Alive Paternal Grandfather Paternal Grandmother Samantha Sister Alive 1 sister Social History Tobacco Use Types Packs/Day Years Used Date Smoking Tobacco: Former Cigarettes 1 10 1 994 - 12/02/2013 Cigars Smokeless Tobacco: Never Tobacco Cessation:Counseling Given: Not Answered Alcohol Use Standard Drinks/Week Comments Not Currently 1 (1 standard drink = 0.6 oz [...] How often do you attend chur or taoism services? Never 01/08/2024 Do you belong to any clubs o r organizations such as mosque groups, unions, fraternal or athletic groups, or [...] Recorded Patient Health Questionnaire-2 Score 0 01/09/2024 [facility] [place] [facility] Occupat ional Health - Occupational Stress [...] any time in the past 12 m [facility], were you homeless or living in a [...] Self- employed Possibly will be working at [employer] Not on file Not on file Not on file Last Filed Vital Signs Vital Sign Reading Time Taken Comments Blood Pressure 134/88 04/21/2024 8:09 AM EST Pulse 91 04/21/2024 8:09 AM EST Temperature 36 C (96.8 F) 04/21/2024 8:09 AM EST Respiratory Rate 18 01/09/2024 9:40 AM EST Oxygen Saturation 97% 04/21/2024 8:09 AM EST Inhaled Oxygen Concentration - - Weight 122 kg (269 lb 12.8 oz) 04/21/2024 8:09 A M EST Height 162.6 cm (5' 4 ) 01/09/2024 9:40 AM EST Body Mass Index 46.31 01/09/2024 9:40 AM EST Plan of Treatment Upcoming Encounters Date Type Department Care Team (Late st Contact Info) Description 09/29/2024 9:00 AM EDT [facility] [address] [place] [address] Karan Cruz, PIERRE [address] [place] [address] Health Maintenance Due Date Last Done Comments CT Colonography 1978 Colonoscopy 1978 FIT 1978 FOBT 1978 Sigmoidoscopy 1978 Mammogram 12/15/2022 12/15/2021, 04/28/2020, 04/19 Influenza Vaccine (#1) 2024 Colorectal Cancer Screening 05/04/2027 FIT-DNA 05/04/2027 05/03/2024 Cervical Cancer Screening Discontinued HPV/Cotest Discontinued 04/28/2020, 04/28/2019, 02/19 Pap Smear Discontinued Goals Goal Patient Goal Type Associated Problems Recent Progress Patient-Stated? Author Help patient manage antidepressant medication Care Plan Patient on antidepressant monitoring plan No Wonderly, Ginger Baseline PHQ-9 Care Plan Baseline PHQ-9 No Wonderly, Ginger Procedures Procedure Name Priority Date/Time Associated Diagnosis Comments IN ARTHROCENTESIS ASPIR&/INJ MAJOR JT/BURSA W/O US Routine 06/26/2024 7:23 PM EDT Primary osteoarthritis of right knee IN ARTHROCENTESIS ASPIR&/INJ MAJOR JT/BURSA W/O US Routine 06/26/2024 7:23 PM EDT Primary osteoarthritis of left knee XR KNEE 1-2 VIEWS LEFT Routine 1:38 PM EDT Left knee pain, unspecified chronicity XR KNEE 1-2 VIEWS RIGHT Routine 06/26/2024 1:37 PM EDT Right knee pain, unspecified chronicity LAB COLOGUARD COLON CANCER SCREEN Routine 05/03/2024 1:05 PM EDT Encounter for screening for malignant neoplasm of colon BI MAMMOGRAM SCREENING TOMOSYNTHESIS BILATERAL Routine 12/15/2021 12:00 PM EDT Intramural leiomyoma of uterus Excessive and frequent menstruation with regular cycle Unspecified ovarian cyst, right side Encounter for screening mammogram for malignant neoplasm of breast Q - THINPREP(R) TIS AND HPV MRNA E6/E7 RFL HPV 16,18/45 Routine 04/28/2020 from Last 3 Months or Most Recently Relevant to Health Maintenance Results * IN ARTHROCENTESIS ASPIR&/INJ MAJOR JT/BURSA W/O US (06/26/2024 7:23 PM EDT) Narrative Karan Cruz NP - 06/26/2024 7:23 PM EDT Karan Cruz NP 06/26/2024 7:27 PM L Inj/Asp: R knee on 06/26/2024 7:23 PM Indications: pain Details: 21 G needle, anterolateral approach Medications: 40 mg methylPREDNISolone acetate 40 MG/ML Outcome: tolerated well, no immediate complications Site cleaned with isopropyl alcohol Procedure, treatment alternatives, risks and benefits explained, specific risks discussed. Consent was given by the patient. us Karan Cruz NP IN CLINIC/BEDSIDE ORDERABLES Fi nal Result * IN ARTHROCENTESIS ASPIR&/INJ MAJOR JT/BURSA W/O US (06/26/2024 7:23 PM EDT) Narrative Karan Cruz NP - 06/26/2024 7:23 PM EDT Karan Cruz NP 06/26/2024 7:27 PM L Inj/Asp: L knee on 06/26/2024 7:23 PM Indications: pain Details: 21 G needle, anterolateral approach Medications: 40 mg methylPREDNISolone acetate 40 MG/ML Outcome: tolerated well, no immediate complications Site was cleaned with isopropyl alcohol Procedure, treatment alternatives, risks and benefits explained, specific risks discussed. Consent was given by the patient. Karan Cruz NP IN CLINIC/BEDSIDE ORDERABLES Fi nal Result * XR knee 1 or 2 views left (06/26/2024 1:38 PM EDT) Anatomical Region Laterality Modality Lower Extremities, Knee Left Radiogra phic Imaging Narrative 06/26/2024 7:27 PM EDT Imaging Result: Imaging Result: X-rays AP and lateral of left knee showed varus deformity with medial joint space. There is flattening of the articular surfaces medially to the tibia plateau and femoral condyle. There is marginal osteophytic formation and subchondral sclerosis noted medially and the patellofemoral joint. There is no evidence of fracture or dislocation. Bony structures viewed showed appropriate ossification Impression: Osteoarthritis of the left knee with varus alignment Karan HERNANDEZ Karan Cruz NP IMG XR PROCEDURES Final Result * XR knee 1 or 2 views right (06/26/2024 1:37 PM EDT) Anatomical Region Laterality Modality Lower Extremities, Knee Right Radiogra phic Imaging Narrative 06/26/2024 7:26 PM EDT Imaging Result: 06/26/2024: X-rays AP and lateral of right knee showed varus deformity with medial joint space. There is flattening of the articular surfaces medially to the tibia plateau and femoral condyle. There is marginal osteophytic formation and subchondral sclerosis noted medially and the patellofemoral joint. There is no evidence of fracture or dislocation. Bony structures viewed showed appropriate ossification Impression: Osteoarthritis of the right knee with varus alignment Karan Cruz COIN COUNTER AND WRAPPER-CLINICAL THERAPIST Karan Cruz HOTEL GUEST SERVICE AGENT IMG XR PROCEDURES Final Result * Cologuard?? colon cancer screening (05/03/2024 1:05 PM EDT) NONINV COLON CA DNA+OCC BLD SCRN STL-IMP Negative Negative 05/09/2024 11:55 PM EDT [facility] (CLIA #:[id number]) Comment: NEGATIVE TEST RESULT. A negative Cologuard result indicates a low likelihood that a colorectal cancer (CRC) or advanced adenoma (adenomatous polyps with more advanced pre-malignant features) is present. The chance that a person with a negative Cologuard test has a colorectal cancer is less than 1 in 1500 (negative predictive value >99.9%) or has an advanced adenoma is less than 5.3% (negative predictive value 94.7%). These data are based on a prospective cross-sectional study of 10,000 individuals at average risk for colorectal cancer who were screened with both Cologuard and colonoscopy. (Kaleb Gibbons al, N Engl J Med 2014;370(14):5040-1548) The normal value (reference range) for this assay is negative. COLOGUARD RE-SCREENING RECOMMENDATION: Periodic colorectal cancer screening is an important part of preventive healthcare for asymptomatic individuals at average risk for colorectal cancer. Following a negative Cologuard result, the [place] Cancer Society and U.S. Multi-Society Task Force screening guidelines recommend a Cologuard re-screening interval of 3 years. References: [place] [employer] Guideline for Colorectal Cancer Screening: https://www.cancer.org/cancer/vcyyd-voiviw-vosyyl/fcdhlwuqw-eqybxvbwr-lpflsqm/ac s-rec ommendations.html.; Hermes DK, Tobias CR, Husam MontelongoK, Colorectal Cancer Screening: Recommendations for Physicians and Patients from the U.S. Multi-Society Task Force on Colorectal Cancer Screening , Am J Gastroenterology 2017; 112:7136-8275. TEST DESCRIPTION: Composite algorithmic analysis of stool DNA-biomarkers with hemoglobin immunoassay. Quantitative values of individual biomarkers are not reportable and are not associated with individual biomarker result reference ranges. Cologuard is intended for colorectal cancer screening of adults of either sex, 45 years or older, who are at average-risk for colorectal cancer (CRC). Cologuard has been approved for use by the U.S. FDA. The performance of Cologuard was established in a cross sectional study of average-risk adults aged 50-84. Cologuard performance in patients ages 45 to 49 years was estimated by sub-group analysis of near-age groups. Colonoscopies performed for a positive result may find as the most clinically significant lesion: colorectal cancer [4.0%], advanced adenoma (including sessile serrated polyps greater than or equal to 1cm diameter) [20%] or non- advanced adenoma [31%]; or no colorectal neoplasia [45%]. These estimates are derived from a prospective cross-sectional screening study of 10,000 individuals at average risk for colorectal cancer who were screened with both Cologuard and colonoscopy. (Kaleb Gibbons al, N Engl J Med 2014;370(14):4367-8631.) Cologuard may produce a false negative or false positive result (no colorectal cancer or precancerous polyp present at colonoscopy follow up). A negative Cologuard test result does not guarantee the absence of CRC or advanced adenoma (pre-cancer). The current Cologuard screening interval is every 3 years. ([place] Cancer Society and U.S. Multi-Society Task Force). Cologuard performance data in a 10,000 patient pivotal study using colonoscopy as the reference method can be accessed at the following location: www.[employer].ZappyLab/results. Additional description of the Cologuard test process, warnings and precautions can be found at www.cologuard.com. Stool specimen (specimen) 05/03/2024 1:05 PM EDT 05/06/2024 11:55 AM EDT Telma Irvin MD LAB MOLECULAR DIAGNOSTICS ORDERA MARSHA Final Result .[employer] (CLIA #:[id number]) [address] [address], [facility] (CLIA #:[id number]) [address] [address] * Bilateral screening mammogram with tomosynthesis (12/15/2021 12:00 PM EDT) Anatomical Region Laterality Modality Breast Bilateral Mammography Narrative 12/15/2021 12:00 PM EDT PERFORMED AT [facility] LOCATION:[id number] Procedure Note CONVERSION, GENERIC - 08/25/2022 PERFORMED AT [facility] LOCATION:[id number] José Miguel Gutierrez MD IMG BI PROCEDURES Final Result * Q - THINPREP(R) TIS AND HPV MRNA E6/E7 RFL HPV 16,18/45 (04/28/2020) CLINICAL INFORMATION: None given [facility] LMP: None given [facility] PREV. PAP: None given [facility] PREV. BX: None given [facility] SOURCE: None given [facility] STATEMENT OF ADEQUACY: SEE NOTE [facility] Comment: Satisfactory for evaluation. Endocervical/transformation zone component present. INTERPRETATION/RE SULT: Negative for intraepithelial lesion or malignancy. [facility] INFECTION: Shift in vaginal zenobia suggestive of bacterial vaginosis. [facility] COMMENT: This Pap test has been evaluated with computer assisted technology. [facility] HOME SECURITY PROFESSIONAL: SEE NOTE NO [facility] Comment: BGG, SCT(ASCP) CT screening location: [facility] [place] [address]. REVIEW HOME SECURITY PROFESSIONAL: SEE NOTE [facility] Comment: LXT, CT(ASCP) CT screening location: [facility] [place] [address]. COMMENT SEE NOTE [facility] Comment: EXPLANATORY NOTE: The Pap is a screening test for cervical cancer. It is not a diagnostic test and is subject to false negative and false positive results. It is most reliable when a satisfactory sample, regularly obtained, is submitted with relevant clinical findings and history, and when the Pap result is evaluated along with historic and current clinical information. HPV MRNA E6/E7 Not Detected Not Detected [facility] Comment: Methodology: Lease Analyst-Mediated Amplification This assay detects E6/E7 viral messenger RNA (mRNA) from 14 high-risk HPV types (16,18,31,33,35,39,45,51,52,56,58,59,66,68). The analytical performance characteristics of this assay have been determined by [employer]. The modifications have not been cleared or approved by the FDA. This assay has been validated pursuant to the CLIA regulations and is used for clinical purposes. For additional information, please refer to http://education.[employer]/faq/YQX533o5 (This link if provided for information/ educational purposes only.) 04/28/2020 Marlene DUKES [facility] Final Result [facility] from Last 3 Months or Most Recently Relevant to Health Maintenance Additional Health Concerns Active Problems Noted Date Diagnosed Date Patient on antidepressant monitoring plan 2023 Baseline PHQ-9 01/14/2024 Insurance [employer] Care Teams Trust Administrator Relationship Specialty Start Date End Date Telma Irvin MD [address], [place] [id number] PCP - General Family Medicine 07/10/22
--- OUTSIDE RECORDS SUMMARY | 2024-09-12 22:34 | XMS_ITS | Encounter Summary ---
Author Organization [facility] Address [address] [facility] [place] [address] Care Team Providers Care Nursing Technician Name Role Phone Telma Irvin MD Primary Care Provider [phone] Reason for Visit * Reason Comments Med Refill Encounter Details Date Type Department Care Team ([facility] st Contact Info) Description 09/27/2022 Refill [facility] [address] [place] [phone] Telma Irvin MD [address] [place], [place] [phone] Bipolar affective disorder, currently depressed, moderate (HCC) [...] often do you attend chur ch or adventist services? Patient declined 07/09/2022 Do you belong to any clubs o r organizations such as sikhism groups, unions, fraternal or athletic groups, or [...] medical care, and heating? Somewhat hard 07/09/2022 [facility] Occupat ional Health - Occupational [...] place to sleep or slept in a long-term (including now)? No 07/09/2022 Education Answer Date [...] Self- employed Possibly will be working at [employer] Not on file Not on file Not on file COVID-19 Exposure Response Date Recorded In the last 10 days, have yo u been in contact with someone who was confirmed or suspected to have Coronavirus/COVID-19? No / Unsure 09/03/2022 8:04 PM EDT documented as of this encounter Miscellaneous Notes * Telephone Encounter - Telma Irvin MD - 09/27/2022 10:33 AM EDT Approvals with refills documented in this encounter Plan of Treatment Upcoming Encounters Date Type Department Care Team (Late st Contact Info) Description 09/29/2024 9:00 AM EDT Office Visit [facility] [place] [address] Karan Cruz, WOOL BROKER [address] [place], [place] [phone] documented as of this encounter Visit Diagnoses Diagnosis Bipolar affective disorder, currently depressed, moderate (HCC) Bipolar I disorder, most recent episode (or current) depressed, moderate documented in this encounter Care Teams Nursing Technician Relationship Specialty Start Date End Date Telma Irvin MD [address] [place] [address] PCP - General Family Medicine 07/10/22 documented as of this encounter
--- OUTSIDE RECORDS SUMMARY | 2024-09-12 22:34 | XMS_ITS | Clinical Summary ---
Author Organization AddThis s tem Address [id number] [address] [place] [address] Care Team Providers Care Video Control Operator Name Role Phone Telma Irvin MD Primary Care Provider Allergies Active Allergy Reactions Criticality Noted Date Comments Lamotrigine Rash Low 11/18/2020 Penicillins Rash Low 11/18/2020 Medications sertraline (ZOLOFT) 100 mg tablet Take 100 mg by mouth daily. Active ARIPiprazole (ABILIFY) 5 mg tablet Take 5 mg by mouth daily. Active Family History Medical History Relation Name Comments Diabetes Father Hypertension Father Relation Name Status Comments Father Social History Tobacco Use Types Packs/Day Years Used Date Smoking Tobacco: Former Cigarettes Q uit: 2013 Smokeless Tobacco: Never Childcare Answer Date Recorded Childcare Unknown 07/31/2018 Employment Answer Date Recorded Employment Unknown 07/31/2018 Hunger Screening Answer Date Recorded Within the past 12 months we worried whether our food would run out before we got money to buy more. Never True 02/07/2023 Within the past 12 months th e food we bought just didn't last and we didn't have money to get more. Never True 02/07/2023 Purpose - Life Answer Date Recorded Purpose and direction in life Unknown Comments No Sex and Gender Information Value Date Recorded Sex Assigned at Not on file Legal Sex Female 11:30 AM EDT Gender Identity Not on file Sexual Orientation Not on file Last Filed Vital Signs Vital Sign Reading Time Taken Comments Blood Pressure 131/68 02/07/2023 7:30 AM EST Pulse 120 02/07/2023 7:45 AM EST Temperature 37.1 C (98.8 F) 02/07/2023 5:42 AM EST Respiratory Rate 18 02/07/2023 7:45 AM EST Oxygen Saturation 93% 02/07/2023 7:45 AM EST Inhaled Oxygen Concentration - - Weight 113.4 kg (250 lb) 02/07/2023 5:42 AM EST Height 165.1 cm (5' 5 ) 02/07/2023 5:42 AM EST Body Mass Index 41.6 02/07/2023 5:42 AM EST Plan of Treatment Health Maintenance Due Date Last Done Comments Depression Screening 1990 COVID-19 Vaccine (2023- 5 season) 2023 02/26/2021, 06/08/2020, 05/14/2020 Adult BMI Screening 02/08/2024 02/07/2023 Tobacco Screening 02/08/2024 02/07/2023 Influenza Vaccine 10/20/2024 DTaP,Tdap and Td Vaccines (2 - Td or Tdap) 06/14/2028 06/14/2018 Medical Devices Not on file Care Teams Video Control Operator Relationship Specialty Start Date End Date Telma Irvin MD PCP - General Family Medicine 06/20/16
--- OUTSIDE RECORDS SUMMARY | 2024-09-12 22:34 | XMS_ITS | Encounter Summary ---
Author Organization [facility] Address [address] [facility] [place] [address] Care Team Providers Care Residential Aide Name Role Phone Telma Irvin MD Primary Care Provider Reason for Visit * Reason Comments Med Refill Encounter Details Date Type Department Care Team ([facility] st Contact Info) Description 07/14/2022 Refill [facility] Family Medicine [address] [place] [phone] Telma Irvin MD [address] [place], [place] [phone] Bipolar I disorder, current or most recent episode depressed, in partial remission (HCC) (Primary Dx) Social History Tobacco Use Types Packs/Day Years [...] often do you attend chur ch or denominational services? Patient declined 07/09/2022 Do you belong to any clubs o r organizations such as restorationism groups, unions, fraternal or athletic groups, or [...] medical care, and heating? Somewhat hard 07/09/2022 [facility] - Occupational [...] place to sleep or slept in a long term (including now)? No 07/09/2022 Comments Unknown Sex [...] suspected to have Coronavirus/COVID-19? No / Unsure 07/09/2022 7:47 PM EDT documented as of this encounter Miscellaneous Notes * Telephone Encounter - Telma Irvin MD - 07/14/2022 2:23 PM EDT Approvals with refills documented in this encounter Plan of Treatment Upcoming Encounters Date Type Department Care Team (Late st Contact Info) Description 09/29/2024 9:00 AM EDT Office Visit [facility] [address] [place] [address] Karan Cruz NP [address] [place], [place] [phone] documented as of this encounter Visit Diagnoses Diagnosis Bipolar I disorder, current or most recent episode depressed, in partial remission (HCC)- Primary documented in this encounter Care Teams Residential Aide Relationship Specialty Start Date End Date Telma Irvin MD [address] [place] [address] PCP - General Family Medicine 07/10/22 documented as of this encounter
--- OUTSIDE RECORDS SUMMARY | 2024-09-12 22:34 | XMS_ITS | Encounter Summary ---
Author Organization [facility] Address [address] [facility] [place] [address] Care Team Providers Care Management Tech Name Role Phone Telma Irvin MD Primary Care Provider [phone] Encounter Details Date Type Department Care Team (Late st Contact Info) Description 07/24/2022 [facility] [address] [facility] [place] [address] Telma Irvin MD [address] [place], [place] [phone] Social History Tobacco Use Types Packs/Day Years [...] How often do you attend chur or gnosticism services? Patient declined 07/09/2022 Do you belong to any clubs o r organizations such as baptist groups, unions, fraternal or athletic groups, or [...] medical care, and heating? Somewhat hard 07/09/2022 [facility] - Occupational [...] place to sleep or slept in a [facility] (including now)? No 07/09/2022 Comments Unknown Sex [...] Visit [facility] [address] [place] [address] Karan Cruz NP [address] [place], [place] [phone] documented as of this encounter Visit Diagnoses Not on filedocumented in this encounter Care Teams Management Tech Relationship Specialty Start Date End Date Telma Irvin MD [address] [place] [address] PCP - General Family Medicine 07/10/22 documented as of this encounter
--- OUTSIDE RECORDS SUMMARY | 2024-09-12 22:34 | XMS_ITS | Encounter Summary ---
Author Organization [facility] Address [address] [facility] [place] [address] Care Team Providers Care Side Seam Machine Operator Name Role Phone Telma Irvin MD Primary Care Provider [phone] Reason for Visit * Reason Comments Med Refill Encounter Details Date Type Department Care Team ([facility] st Contact Info) Description 10/27/2022 Refill [facility] Family Medicine [address] [place] [phone] Telma Irvin MD [address] [place], [place] [phone] Bipolar affective disorder, currently depressed, moderate (HCC) [...] often do you attend chur ch or yazidism services? Patient declined 07/09/2022 Do you belong to any clubs o r organizations such as samaritan groups, unions, fraternal or athletic groups, or [...] medical care, and heating? Somewhat hard 07/09/2022 [facility] - Occupational [...] place to sleep or slept in a intermediate (including now)? 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 No / Unsure 10/01/2022 11:49 AM EDT documented as of this encounter Miscellaneous Notes * Telephone Encounter - Telma Irvin MD - 10/27/2022 10:06 AM EDT Approvals with refills documented in this encounter Plan of Treatment Upcoming Encounters Date Type Department Care Team (Late st Contact Info) Description 09/29/2024 9:00 AM EDT Office Visit [facility] [place] [address] Karan Cruz, ELECTRONIC ENGINEERING DRAFTSPERSON [address] [place], [place] [phone] documented as of this encounter Visit Diagnoses Diagnosis Bipolar affective disorder, currently depressed, moderate (HCC) Bipolar I disorder, most recent episode (or current) depressed, moderate documented in this encounter Care Teams Side Seam Machine Operator Relationship Specialty Start Date End Date Telma Irvin MD [address] [place] [address] PCP - General Family Medicine 07/10/22 documented as of this encounter
--- OUTSIDE RECORDS SUMMARY | 2024-09-12 22:35 | XMS_ITS | CCD ---
Author Organization [facility] Care Team Providers Care Barrel Inspector Name Role Phone SUSANNE CARL Admitting Unavailable SUSANNE CARL Attending Unavailable ALBARO, DR VELASCO Primary Care Unavailable SUSANNE CARL Consulting Unavailable SIDDHARTHA, SUSANNE Admitting Unavailable SIDDHARTHA, SUSANNE Attending Unavailable ALBARO, DR VELASCO Primary [facility] Unavailable SUSANNE CARL Consulting Unavailable MD Sarahi Gutierrez Attending Provider MD Albaro [facility] Care Provider Sarahi Gutierrez Admitting Unavailable Albaro, [facility] Primary [facility] Unavailable Printy, Sarahi Attending Unavailable Albaro, [facility] Primary Care Unavailable Printy, Sarahi Attending Unavailable Printy, Sarahi Admitting Unavailable Albaro, [facility] Primary Care Unavailable Printy, Sarahi Admitting Unavailable Printy, Sarahi Attending Unavailable Telma Irvin MD Primary Care Provider MD THOM ZAVALA Attending Unav ailable TELMA IRVIN Attending Unavailable HERLINDA FERRARI Attending Unavailable ALBARO, TELMA Lopez Attending Unavailable HERLINDA FERRARI Attending Unavailable TELMA IRVIN Referring Unavailable FERRARIHERLINDA Referring Unavailable HERLINDA FERRARI Referring Unavailable HERLINDA FERRARI Attending Unavailable Allergies Allergy Classification Reported Allergen(s) Allergy Type Date of Onset Reaction(s) Facility (1 source) lamoTRIgine Drug Allergy 6 [facility] Repository (3 sources) Penicillins Drug allergy (disorder) 6 Rash [facility] (1 source) Misc-Food; Translations: [Misc-Food] Food allergy (disorder) 6 [facility] (20 sources) lamoTRIgine; Translations: [lamotrigine] Drug Allergy 2 [facility] (3 sources) walnut; Translations: [walnut] Propensity to adverse reactions 2 [facility] (1 source) Penicillins Drug allergy (disorder) 2 [facility] Rep[facility] (19 sources) Penicillins Propensity to adverse reactions 3 Rash [facility] Medications Current Medications Medication Drug Class(es) Dates Sig (Normalized) Sig (Original) ARIPiprazole 10 mg oral tablet (20 sources) Atypical Antipsychotic Start: 07-21-2023 End: 12-29-2026 take 1 tablet by mouth once daily ARIPiprazole (Abilify) 10 MG tablet Indications: Bipolar I disorder, current or most recent episode depressed, in partial remission (HCC) Take 1 tablet (10 mg) by mouth Daily 90 tablet 11 01/14/2024 12/29/2026 Active Start: 07-14-2022 End: 07-14-2023 take 1 tablet by mouth in the morning ARIPiprazole (Abilify) 10 MG tablet Indications: Bipolar I disorder, current or most recent episode depressed, in partial remission (CMS/HCC) Take 1 tablet (10 mg) by mouth in the morning. 90 tablet 3 07/14/2022 07/14/2023 Active Start: 02-03-2022 take 5 mg by mouth o nce daily in the morning Aripiprazole Active 5 MG PO Every morning February 03, 2022 12:00am atorvastatin 20 mg oral tablet (5 sources) HMG-CoA Reductase Inhibitor Start: 04-23-2024 End: 04-23-2025 take 1 tablet by mouth once daily atorvastatin (Lipitor) 20 MG tablet Indications: Hyperlipidemia, unspecified hyperlipidemia type Take 1 tablet (20 mg) by mouth Daily 100 tablet 3 04/23/2024 04/23/2025 Active celecoxib 200 mg oral capsule (1 source) Nonsteroidal Anti-inflammatory Drug Start: 08-25-2024 End: 09-24-2024 take 1 capsule by mouth once daily celecoxib (CeleBREX) 200 MG capsule Indications: Primary osteoarthritis of right knee , Primary osteoarthritis of left knee Take 1 capsule (200 mg) by mouth Daily 30 capsule 1 08/25/2024 09/24/2024 Active chondroitin sulfates 400 mg / glucosamine sulfate 500 mg oral tablet (15 sources) take 1 tablet by mouth in the morning, then take 1 tablet by mouth in the evening, then take 1 tablet by mouth at bedtime glucosamine-chondroi tin 500-400 MG tablet Take 1 tablet by mouth in the morning and 1 tablet in the evening and 1 tablet before bedtime. Active ondansetron 4 mg disintegrating oral tablet (15 sources) Serotonin-3 Receptor Antagonist Start: 01-05-2024 ondansetron ODT (Zofran-ODT) 4 MG disintegrating tablet DISSOLVE 1 (ONE) TABLET on the tongue EVERY 8 HOURS NEEDED FOR NAUSEA AND VOMITING 01/05/2024 Active sertraline 100 mg oral tablet (20 sources) Serotonin Reuptake Inhibitor Start: 04-21-2024 End: 04-21-2025 take 1 tablet by mouth in the morning sertraline (Zoloft) 100 MG tablet Indications: Bipolar affective disorder, currently depressed, moderate (HCC) Take 1 tablet (100 mg) by mouth in the morning. 90 tablet 3 04/21/2024 04/21/2025 Active Start: 07-21-2023 End: 04-21-2024 take 1 tablet by mouth in the morning sertraline (Zoloft) 50 MG tablet Indications: Bipolar affective disorder, currently depressed, moderate (CMS/HCC) Take 1 tablet (50 mg) by mouth in the morning. 30 tablet 11 01/14/2024 04/21/2024 Discontinued (Reorder) Start: 03-23-2023 take 1 tablet by oniel th once daily in the morning sertraline (Zoloft) 50 MG tablet Indications: Bipolar affective disorder, currently depressed, moderate (CMS/HCC) take 1 tablet by mouth every morning 30 tablet 0 03/23/2023 Active tamsulosin hydrochloride 0.4 mg oral capsule (15 sources) alpha-Adrenergic Remi Start: 01-05-2024 take 1 capsule by mouth once daily tamsulosin (Flomax) 0.4 MG 24 hr capsule Take 0.4 mg by mouth Daily 01/05/2024 Active traMADol hydrochloride 50 mg oral tablet (15 sources) Opioid Agonist Start: 01-05-2024 take 1 tablet by mouth every eight hours as needed traMADol (Ultram) 50 MG tablet Take 50 mg by mouth every 8 (eight) hours if needed 01/05/2024 Active Completed/Discontinued Medications Medication Drug Class(es) Dates Sig (Normalized) Sig (Original) 10 ml lidocaine hydrochloride 10 mg/ml injection (14 sources) Antiarrhythmic, Amide Local Anesthetic Start: 3 End: lidocaine (Xylocaine) 1 % injection 40 mg 1 ml methylPREDNISolone acetate 40 mg/ml injection (19 sources) Corticosteroid Start: 5 End: 5 methylPREDNISolone acetate (DEPO-Medrol) injection 40 mg Start: 06-26-2024 End: 06-26-2024 40 mg, Intra-articular, Once PRN Procedure, Starting on [place] 06/26/24 at 1923, For 1 dose Start: 01-28-2024 End: 01-28-2024 methylPREDNISolone acetate ( DEPO-Medrol) injection 40 mg Start: 01-28-2024 End: 01-28-2024 40 mg, Intra-articular, Once PRN Procedure, Starting on 01/28/24 at 1202, For 1 dose Start: 01-15-2024 End: 04-21-2024 methylPREDNISolone (Medrol D ospak) 4 MG tablets Indications: Left knee pain, unspecified chronicity Follow schedule on package instructions 21 tablet 01/15/2024 04/21/2024 Discontinued (Therapy completed) Start: 01-15-2024 methylPREDNISo lone (Medrol Dospak) 4 MG tablets Indications: Left knee pain, unspecified chronicity Follow schedule on package instructions 21 tablet 01/15/2024 Active 1 ml triamcinolone acetonide 40 mg/ml prefilled syringe (3 sources) Corticosteroid Start: 07-10-2022 End: 04-05-2023 triamcinolone acetonide (Kenalog-40) injection 40 mg Problems Active Problems Problem Classification Problem Date Documented Da te Episodic/Chronic Calculus of urinary tract (2 sources) Kidney stone; Translations: [Calculus of kidney] 01-09-2024 Episodic Cardiac dysrhythmias (2 sources) Tachycardia; Translations: [Tachycardia, unspecified] 04-05-2023 Episodic Chronic obstructive pulmonary disease and bronchiectasis (19 sources) Mucopurulent chronic bronchitis; Translations: [Mucopurulent chronic bronchitis] Onset: 07-09-2022 Resolved: 07-09-2022 07-09-2022 Chronic Diabetes mellitus without complication (2 sources) Increased glucose level; Translations: [Other abnormal glucose] 01-09-2024 Episodic Disorders of lipid metabolism (1 source) Hyperlipidemia; Translations: [Hyperlipidemia, unspecified] 04-23-2024 Chronic Endometriosis (18 sources) Endometriosis of ovary; Translations: [Endometrioma of ovary] Onset: 04-05-2023 04-05-2023 Chronic Genitourinary symptoms and ill-defined conditions (19 sources) Incontinence; Translations: [Unspecified urinary incontinence] Onset: 07-09-2022 07-09-2022 Chronic Genitourinary symptoms and ill-defined conditions (2 sources) Alteration in patterns of urinary elimination; Translations: [Other difficulties with micturition] 04-05-2023 Episodic Joint disorders and dislocations; trauma-related (20 sources) Derangement of right knee; Translations: [Unspecified internal derangement of right knee] Onset: 07-09-2022 07-09-2022 Chronic Joint disorders and dislocations; trauma-related (20 sources) Derangement of left knee; Translations: [Unspecified internal derangement of left knee] Onset: 07-10-2022 07-10-2022 Chronic Menstrual disorders (20 sources) Excessive and frequent menstruation with regular cycle; Translations: [Irregular periods] Onset: 02-17-2022 Resolved: 07-09-2022 07-09-2022 Chronic Miscellaneous mental health disorders (19 sources) Primary insomnia; Translations: [Primary insomnia] Onset: 07-09-2022 07-09-2022 Chronic Mood disorders (20 sources) Depressed bipolar I disorder in partial remission; Translations: [Bipolar disorder, in partial remission, most recent episode depressed] Onset: 07-09-2022 07-09-2022 Chronic Osteoarthritis (14 sources) Osteoarthritis of left knee joint; Translations: [Unilateral primary osteoarthritis, left knee] 01-28-2024 Chronic Other acquired deformities (19 sources) Contracture of joint of right ankle; Translations: [Contracture, right ankle] Onset: 07-09-2022 07-09-2022 Chronic Other female genital disorders (19 sources) Abnormal uterine bleeding; Translations: [Abnormal uterine and vaginal bleeding, unspecified] Onset: 07-09-2022 07-09-2022 Chronic Other gastrointestinal disorders (19 sources) Irritable bowel syndrome with diarrhea; Translations: [Irritable bowel syndrome with diarrhea] Onset: 07-09-2022 07-09-2022 Chronic Other liver diseases (19 sources) Nodule of liver; Translations: [Other specified diseases of liver] Onset: 07-09-2022 07-09-2022 Chronic Other nervous system disorders (19 sources) Chronic pain; Translations: [Other chronic pain] Onset: 07-09-2022 07-09-2022 Chronic Other non-traumatic joint disorders (6 sources) Pain in left knee; Translations: [Pain in joint, lower leg] 01-14-2024 Episodic Other screening for suspected conditions (not mental disorders or infectious disease) (6 sources) Patient encounter status; Translations: [Encounter for screening for malignant neoplasm of colon] 04-21-2024 Episodic Other upper respiratory disease (19 sources) Allergic rhinitis due to pollen; Translations: [Allergic rhinitis due to pollen] Onset: 07-09-2022 07-09-2022 Chronic Other upper respiratory disease (19 sources) Allergic rhinitis due to animal (cat) (dog) hair and dander; Translations: [Allergic rhinitis due to animal (cat) (dog) hair and dander] Onset: 07-09-2022 07-09-2022 Chronic Unclassified (3 sources) CONTACT W/AND (SUSP) EXPOS COVID-19; Translations: [CONTACT W/AND (SUSP) EXPOS COVID-19] Onset: 11-05-2020 Unclassified (1 source) Encounter for preprocedural laboratory examination; Translations: [Encounter for preprocedural laboratory examination] Onset: 02-15-2022 Unclassified (13 sources) Patient on antidepressant monitoring plan Onset: 01-14-2024 01-14-2024 Unclassified (13 sources) Baseline PHQ-9 Onset: 01-14-2024 01-14-2024 Past or Other Problems Problem Classification Problem Date Documented Da te Episodic/Chronic Anxiety disorders (19 sources) Anxiety; Translations: [Anxiety disorder, unspecified] Onset: 07-09-2022 Resolved: 07-09-2022 07-09-2022 Chronic Asthma (19 sources) Asthmatic bronchitis; Translations: [Unspecified asthma, uncomplicated] Onset: 07-09-2022 Resolved: 10-02-2022 10-02-2022 Chronic Malaise and fatigue (1 source) Other fatigue; Translations: [OTHER FATIGUE] Onset: 10-20-2020 Episodic Nausea and vomiting (1 source) Nausea; Translations: [NAUSEA] Onset: 10-20-2020 Episodic Other female genital disorders (19 sources) Cyst of uterine adnexa; Translations: [Unspecified condition associated with female genital organs and menstrual cycle] Onset: 07-09-2022 07-09-2022 Episodic Other gastrointestinal disorders (1 source) Diarrhea, unspecified; Translations: [DIARRHEA UNSPECIFIED] Onset: 10-20-2020 Episodic Other lower respiratory disease (19 sources) Nodule of lung; Translations: [Solitary pulmonary nodule] Onset: 07-09-2022 Resolved: 07-09-2022 07-09-2022 Episodic Other non-traumatic joint disorders (20 sources) Pain in right knee; Translations: [Pain in joint, lower leg] Onset: 09-08-2022 09-08-2022 Episodic Residual codes; unclassified (19 sources) Passive smoker; Translations: [Contact with and (suspected) exposure to environmental tobacco smoke (acute) (chronic)] Onset: 07-09-2022 Resolved: 07-09-2022 07-09-2022 Episodic Residual codes; unclassified (20 sources) History of total hysterectomy with bilateral salpingo-oophorecto my; Translations: [Acquired absence of both cervix and uterus] Onset: 04-05-2023 04-05-2023 Episodic Unclassified (1 source) CONTACT W/AND (SUSP) EXPOS COVID-19; Translations: [CONTACT W/AND (SUSP) EXPOS COVID-19] Onset: 11-01-2020 Viral infection (20 sources) Genital warts; Translations: [Anogenital (venereal) warts] Onset: 07-09-2022 Resolved: 07-09-2022 07-09-2022 Episodic Results Test Name Value Interpretation Reference Range Facility No Panel Informationon 06-26 Herlinda Ferrari NP 06/26/2024 7:27 PM L Inj/Asp: R knee on 06/26/2024 7:23 PM Indications: pain Details: 21 G needle, anterolateral approach Medications: 40 mg methylPREDNISolone acetate 40 MG/ML Outcome: tolerated well, no immediate complications Site cleaned with isopropyl alcohol Procedure, treatment alternatives, risks and benefits explained, specific risks discussed. Consent was given by the patient. [facility] Herlinda Ferrari NP 06/26/2024 7:27 PM L Inj/Asp: L knee on 06/26/2024 7:23 PM Indications: pain Details: 21 G needle, anterolateral approach Medications: 40 mg methylPREDNISolone acetate 40 MG/ML Outcome: tolerated well, no immediate complications Site was cleaned with isopropyl alcohol Procedure, treatment alternatives, risks and benefits explained, specific risks discussed. Consent was given by the patient. [facility] XR Knee - left 1 or 2 Viewso n 06-26-2024 Imaging Result: Imaging Result: X-rays AP and [...] of the left knee with varus alignment Herlinda Ferrari SOFTWARE DEVELOPMENT INTERN-APPLIANCE FIXER [facility] Radiology Study observation (narrative) [facility] XR Knee - right 1 or 2 Views on 06-26-2024 Imaging Result: 06/26/2024: X-rays AP and lateral [...] of the right knee with varus alignment Herlinda Ferrari SOFTWARE DEVELOPMENT INTERN-APPLIANCE FIXER [facility] Radiology Study observation (narrative) [facility] No Panel Informationon 01-27 Herlinda Ferrari NP 01/28/2024 12:04 PM L Inj/Asp: L knee on 01/28/2024 12:02 PM Indications: pain Details: anterolateral approach Medications: 40 mg methylPREDNISolone acetate 40 MG/ML Site was cleaned with isopropyl alcohol Consent was given by the patient. [facility] Complete Blood Count Auto Di ffon 02-18-2022 Basophils (Bld) [#/Vol] 0.0 10*3/uL Normal 0.0-0.2 [facility] Comment on above: Result Comment: PERF ORMED BY: [place] [address] PATHOLOGIST MANAGER BEAUTY SNEHA SULTANA M.D. Performed By: #### C BC #### [address] Basophils/100 WBC (Bld) 0.2 % Normal . [facility] Comment on above: Performed By: #### C BC #### [address] Eosinophils (Bld) [#/Vol] 0.0 10*3/uL Normal 0.0-0.45 [facility] Comment on above: Performed By: #### C BC #### [address] Eosinophils/100 WBC (Bld) 0.0 % Normal . [facility] Comment on above: Performed By: #### C BC #### [address] Erythrocyte distribution width (RBC) [Ratio] 13.5 % Normal 11.9-15.3 [facility] Comment on above: Performed By: #### C BC #### [address] Hematocrit (Bld) [Volume fraction] 32.3 % Low 34.0-46.4 [facility] Comment on above: Performed By: #### C BC #### [address] Hemoglobin (Bld) [Mass/Vol] 10.5 g/dL Low 11.8-15.4 [facility] Comment on above: Performed By: #### C BC #### [place] [address] [place] Lymphocytes (Bld) [#/Vol] 1.7 10*3/uL Normal 1.00-4.8 [facility] Comment on above: Performed By: #### C BC #### [address] Lymphocytes/100 WBC (Bld) 11.9 % Normal . [facility] Comment on above: Performed By: #### C BC #### [facility] [address] MCH (RBC) [Entitic mass] 28.0 pg Normal 24.7-34.3 [facility] Comment on above: Performed By: #### C BC #### [facility] [address] MCV (RBC) [Entitic vol] 85.7 fL Normal 80-100 [facility] Comment on above: Performed By: #### C BC #### [facility] [address] Mean Corpuscular HGB Conc 32.7 g/dL Normal 32.0-35.0 [facility] Comment on above: Performed By: #### C BC #### [facility] [address] [place] [address] [place] Monocytes (Bld) [#/Vol] 1.2 10*3/uL High 0.0-0.8 [facility] Comment on above: Performed By: #### C BC #### [facility] [address] [place] [address] [place] Monocytes/100 WBC (Bld) 8.5 % Normal . [facility] Comment on above: Performed By: #### C BC #### [facility] [address] [place] [address] [place] Neutrophils (Bld) [#/Vol] 11.4 10*3/uL High 1.8-7.7 [facility] Comment on above: Performed By: #### C BC #### [facility] [address] [place] [address] [place] Neutrophils/100 WBC (Bld) 79.4 % Normal . [facility] Comment on above: Performed By: #### C BC #### [facility] [address] NRBC% 0.0 /100{WBC} Normal 0-0.5 [facility] Comment on above: Performed By: #### C BC #### [facility] [address] [place] [address] Platelet mean volume (Bld) [Entitic vol] 7.8 fL Normal 6.3-10.7 [facility] Comment on above: Performed By: #### C BC #### [address] Platelets (Bld) [#/Vol] 379 10*3/uL Normal 150-450 [facility] Comment on above: Performed By: #### C BC #### [address] RBC (Bld) [#/Vol] 3.77 10*6/uL Normal 3.60-5.00 [facility] Comment on above: Performed By: #### C BC #### [address] WBC (Bld) [#/Vol] 14.4 10*3/uL High 3.8-11.6 [facility] Comment on above: Performed By: #### C BC #### [address] HCG,Urineon 02-17-2022 Beta HCG ( test) Ql (U) Negative Normal [facility] Comment on above: Result Comment: PERF ORMED BY: [place] [address] PATHOLOGIST MANAGER BEAUTY SNEHA SULTANA M.D. Performed By: #### U HCG #### [address] Jesus 02-17-2022 L - -------- Specimen: [id number] Received: 02/21/22 Status: OBDULIO [place] Num: [id number] Spec Type: Surgical Subm Dr: SARAHI GUTIERREZ MD Tissues: A Uterus w/ or w/o tubes ovaries except neoplastic or prolap (UTERUS, CERVIX Procedures: , Gross/Micro L5 -------- Age/ Patient Sex Location Account Attending Physician -------- Florencia Ang 41/F [place] [id number] SARAHI GUTIERREZ MD -------- SPEC NUM: [id number] RECD: 02/21/22 STATUS: OBDULIO [place] NUM: [id number] AGUS: 02/17/22- SUBM DR: SARAHI GUTIERREZ MD ENTERED: 02/21/[address] [facility] [address]: SPEC TYPE: Surgical DEPT: S ORDERED: , Gross/Micro L5 ORDERED: , Gross/Micro L5 Pathological Diagnosis Bilateral tubes/ovaries, uterus, cervix, bilateral salpingo-oophorectomy with hysterectomy: - Minimal chronic cervicitis and nabothian cysts. - Proliferative phase endometrium. - Adenomyosis. - Leiomyomata of uterus. - Bilateral ovaries with benign follicular, hemorrhagic, and corpus luteal cysts. - Bilateral fallopian tubes, no pathologic diagnosis. Clinical Information Intramural leiomyoma of uterus, right ovarian cyst, menorrhagia with regular cycle, Gram [id number] Gross Description Received in formalin labeled with the patient's name, number and bilateral tubes/ovaries, uterus, cervix is a 176 g, 7.0 x 5.3 x 5.0 cm supracervically amputated uterus with a detached cervix and detached bilateral adnexa.the uterine serosa is nowak-pink with focal subserosal nodules identified and nowak red fibrous adhesions. The detached cervix measures 4.2 x 3.4 x 3.4 cm and is partially surface by nowak-montana unremarkable exocervical mucosa with a central 0.5 cm patent os. The endocervix is nowak red, glistening with smooth-walled, clear mucoid material filled cysts measuring up to 0.6 cm. The nowak-red endometrium averages 0.2 cm in thickness. The pink-nowak, trabecular myometrium measures up to 2.5 cm in thickness and contains three nodules with white, whorled cut surfaces measuring up to 2.4 cm. One detached nowak-menon, lobular ovary measures 3.5 x 2.7 x 2.1 cm and has an attached purple-red -------- Specimen: [id number] Received: 02/21/22 Status: OBDULIO [place] Num: [id number] Spec Type: Surgical Subm Dr: SARAHI GUTIERREZ MD Tissues: A Uterus w/ or w/o tubes ovaries except neoplastic or prolap (UTERUS, CERVIX Procedures: HE/9, Gross/Micro L5 -------- Patient: Florencia Ang [id number] (Continued) -------- Specimen: [id number] Received: 02/21/22 (Continued) Gross Description (Continued) Signed (signature on file) Mingo Alvarez MD 02/22/22 1431 -------- Specimen: [id number] Received: 02/21/22 Status: OBDULIO [place] Num: [id number] Spec Type: Surgical Subm Dr: SARAHI GUTIERREZ MD Tissues: A Uterus w/ or w/o tubes ovaries except neoplastic or prolap (UTERUS, CERVIX Procedures: PORFIRIO/Joyce, Gross/Micro L5 -------- Patient: Florencia Ang [id number] (Continued) -------- Specimen: [id number] Received: 02/21/22 (Continued) Gross Description (Continued) fimbriated fallopian tube measuring 5.5 x 0.7 x 0.7 cm. Sectioning the ovary reveals multiple smooth-walled, clear fluid-filled cysts and hemorrhagic material filled cysts measuring up to 0.9 cm. The remaining cut surface of the ovary is rubbery, nowak-menon. The second nowak-menon, rubbery ovary measures 6.7 x 5.2 x 2.5 cm and has been previously partially incised sectioning reveals multiple smooth-walled, clear fluid-filled cysts and hemorrhagic material filled cysts measuring up to 3.5 cm. The remaining cut surface is rubbery, nowak- menon the second detached portion of fimbriated fallopian tube measures 6.0 x 0.5 x 0.5 cm has a patent lumen on cut section. Bulk Station Agent sections are submitted in 9 cassettes as follows: A1-A2 - Cervix A3-A4 - Endomyometrium A5 - Myometrial nodules A6 - Serosal adhesions A7 - First ovary and fallopian tube A8 - Second ovary A9 - Second fallopian tube Microscopic Description Nine glass slides with H E stained material have been examined. The microscopic findings support th (more content not included)... Normal [facility] COVID-19 Antigenon 2 COVID-19 Antigen Healthcare Worker?: N Reference Range: Negative Negative results, from patients with symptom onset beyond five days, should be treated as presumptive and confirmation with a molecular assay, if necessary, for patient management, may be performed. Negative results do not rule out COVID-19 and should not be used as the sole basis for treatment or patient management decisions, including infection control decisions. Negative results should be considered in the context of a patient's recent exposures, history and the presence of clinical signs and symptoms consistent with COVID-19. The Joe SARS Antigen FARIDEH does not differentiate between SARS-CoV and SARS-CoV-2. This test was developed and its performance characteristic determined by [employer] and validated at [facility]. This test has not been FDA cleared or approved. This test has been authorized by FDA under an Emergency Use Authorization (EUA). This test has been validated in accordance with the FDA's Guidance Document (Policy for Diagnostics Testing in Laboratories Certified to Perform High Complexity Testing under CLIA prior to Emergency Use Authorization for Coronavirus Disease-2019 during the Public Health Emergency) issued on May 22, 2019. This test is only authorized for the duration of time the declaration that circumstances exist justifying the authorization of the emergency use of in vitro diagnostic tests for detection of SARS-CoV-2 virus and/or diagnosis of COVID-19 infection under section 564(b)(1) of the Act, 21 U.S.C. 360bbb-3(b)(1), unless the authorization is terminated or revoked sooner. SARS-CoV+SARS-CoV-2 (COVID-19) Ag [Presence] in Respiratory specimen by Rapid immunoassay Negative for SARS Antigen by FARIDEH PERFORMED BY: [place] [address] PATHOLOGIST MANAGER BEAUTY SNEHA SULTANA M.D. Normal [facility] Comment on above: Performed By: #### C OVID-19 JOE, SOFIANEG #### [address] COVID-19 SOFIAOrdered By: MELONIE GUTIERREZ on 02-15-2022 SARS-CoV+SARS-CoV-2 (COVID-19) Ag IA.rapid Ql (Resp) Negative Negative [facility] Comment on above: This is a duplicate Joe SARS Antigen (FARIDEH) result to be used for statistical tracking purpose only. No Panel InformationOrdered By: SARAHI GUTIERREZ on 02-15-2022 SARS Antigen (LFIA) [facility] Joe Ag Negativeon 02-16-20 22 Joe Ag Negative Negative Normal Negative [facility] Comment on above: Result Comment: This is a duplicate Joe SARS Antigen (FARIDEH) result to be used for statistical tracking purpose only. PERFORMED BY: [place] [address] PATHOLOGIST MANAGER BEAUTY SNEHA SULTANA M.D. Performed By: #### C OVID-19 JOE, SOFIANEG #### [facility] [address] Basic Metabolic Panelon 12- Anion gap [Moles/Vol] 9.4 mmol/L Normal 6.0-15.0 [facility] Comment on above: Performed By: #### C BC, BMP #### [facility] [address] Calcium [Mass/Vol] 9.2 mg/dL Normal 8.2-10.2 [facility] Comment on above: Result Comment: PERF ORMED BY: [place] [address] PATHOLOGIST MANAGER BEAUTY SNEHA SULTANA M.D. Performed By: #### C BC, BMP #### [address] Chloride [Moles/Vol] 105 mmol/L Normal 95-114 [facility] [place] Comment on above: Performed By: #### C BC, BMP #### [address] CO2 [Moles/Vol] 26.5 mmol/L Normal 22.0-30.0 [facility] Comment on above: Performed By: #### C BC, BMP #### [address] Creatinine [Mass/Vol] 0.86 mg/dL Normal 0.44-1.03 [facility] Comment on above: Performed By: #### C BC, BMP #### [facility] [address] [place] [address] [place] Estimated GFR ( Mara > 60 Normal [facility] Comment on above: Result Comment: GFR estimated reference range: According to KDOQI guidelines, <60 ml/min/1.73m2 is sufficient to diagnose a patient with chronic kidney disease. Performed By: #### C BC, BMP #### [facility] [address] [place] [address] [place] Estimated GFR (Non- Am > 60 Normal [facility] Comment on above: Performed By: #### C BC, BMP #### [facility] [address] [place] [address] [place] Glucose [Mass/Vol] 83 mg/dL Normal 70-100 [facility] Comment on above: Result Comment: [place] Glucose Reference Range is dependent on time and content of last meal. Glucose of more than 200 mg/dL in a nonstressed, ambulatory subject supports the diagnosis of Diabetes Mellitus. ADA recommended reference range Performed By: #### C BC, BMP #### [facility] [address] Potassium [Moles/Vol] 3.9 mmol/L Normal 3.5-5.1 [facility] Comment on above: Performed By: #### C BC, BMP #### [facility] [address] Sodium [Moles/Vol] 137 mmol/L Normal 136-146 [facility] Comment on above: Performed By: #### C BC, BMP #### [facility] [address] Urea nitrogen [Mass/Vol] 11 mg/dL Normal 9-23 [facility] Comment on above: Performed By: #### C BC, BMP #### [facility] [address] [place] [address] [place] Basophils Auto (Bld) [#/Vol] Ordered By: SARAHI GUTIERREZ on 02-03-2022 Basophils (Bld) [#/Vol] 0.1 10*3/uL 0.0-0.2 [facility] Basophils/100 WBC Auto (Bld) Ordered By: SARAHI GUTIERREZ on 02-03-2022 Basophils/100 WBC (Bld) 0.6 % . [facility] Complete Blood Count Auto Di ffon 02-03-2022 Basophils (Bld) [#/Vol] 0.1 10*3/uL Normal 0.0-0.2 [facility] Comment on above: Result Comment: PERF ORMED BY: [place] [address] PATHOLOGIST MANAGER BEAUTY SNEHA SULTANA M.D. Performed By: #### C BC, BMP #### [facility] [address] [place] [id number] [place] Basophils/100 WBC (Bld) 0.6 % Normal . [facility] Comment on above: Performed By: #### C BC, BMP #### [facility] [address] [place] [id number] [place] Eosinophils (Bld) [#/Vol] 0.2 10*3/uL Normal 0.0-0.45 [facility] Comment on above: Performed By: #### C BC, BMP #### [facility] [address] [place] [address] [place] Eosinophils/100 WBC (Bld) 1.3 % Normal . [facility] Comment on above: Performed By: #### C BC, BMP #### [facility] [address] Erythrocyte distribution width (RBC) [Ratio] 13.7 % Normal 11.9-15.3 [facility] Comment on above: Performed By: #### C BC, BMP #### [facility] [address] [place] [address] [place] Hematocrit (Bld) [Volume fraction] 36.2 % Normal 34.0-46.4 [facility] Comment on above: Performed By: #### C BC, BMP #### [facility] [address] [place] [id number] [place] Hemoglobin (Bld) [Mass/Vol] 11.7 g/dL Low 11.8-15.4 [facility] Comment on above: Performed By: #### C BC, BMP #### [facility] [address] [place] [id number] [place] Lymphocytes (Bld) [#/Vol] 2.9 10*3/uL Normal 1.00-4.8 [facility] Comment on above: Performed By: #### C BC, BMP #### [facility] [address] [place] [id number] [place] Lymphocytes/100 WBC (Bld) 22.9 % Normal . [facility] Comment on above: Performed By: #### C BC, BMP #### [facility] [address] MCH (RBC) [Entitic mass] 27.7 pg Normal 24.7-34.3 [facility] Comment on above: Performed By: #### C BC, BMP #### [facility] [address] MCV (RBC) [Entitic vol] 85.7 fL Normal 80-100 [facility] Comment on above: Performed By: #### C BC, BMP #### [facility] [address] Mean Corpuscular HGB Conc 32.4 g/dL Normal 32.0-35.0 [facility] Comment on above: Performed By: #### C BC, BMP #### [facility] [address] Monocytes (Bld) [#/Vol] 0.9 10*3/uL High 0.0-0.8 [facility] Comment on above: Performed By: #### C BC, BMP #### [facility] [address] [place] [address] [place] Monocytes/100 WBC (Bld) 6.9 % Normal . [facility] Comment on above: Performed By: #### C BC, BMP #### [facility] [address] Neutrophils (Bld) [#/Vol] 8.6 10*3/uL High 1.8-7.7 [facility] Comment on above: Performed By: #### C BC, BMP #### [facility] [address] [place] [address] [place] Neutrophils/100 WBC (Bld) 68.3 % Normal . [facility] Comment on above: Performed By: #### C BC, BMP #### [facility] [address] NRBC% 0.0 /100{WBC} Normal 0-0.5 [facility] Comment on above: Performed By: #### C BC, BMP #### [facility] [address] [place] [address] [place] Platelet mean volume (Bld) [Entitic vol] 7.8 fL Normal 6.3-10.7 [facility] Comment on above: Performed By: #### C KARIN, BMP #### [facility] [address] [place] [address] [place] Platelets (Bld) [#/Vol] 335 10*3/uL Normal 150-450 [facility] Comment on above: Performed By: #### C KARIN, BMP #### [facility] [address] RBC (Bld) [#/Vol] 4.22 10*6/uL Normal 3.60-5.00 [facility] Comment on above: Performed By: #### C KARIN, BMP #### [facility] [address] WBC (Bld) [#/Vol] 12.6 10*3/uL High 3.8-11.6 [facility] Comment on above: Performed By: #### C KARIN, BMP #### [address] Creatinine and Glomerular fi ltration rate.predicted panel (S/P/Bld)Ordered By: SARAHI GUTIERREZ on 02-03-2022 Creatinine [Mass/Vol] 0.86 mg/dL 0.44-1.03 [facility] ECG 12 lead ECGon 02-03-2022 ECG 12 lead ECG [facility] [place] [address] [place] [address] Electrocardiograph Report Signed Patient: Florencia Ang MR#: [id number] : 1980 Acct:[id number] Age/Sex: 41 / F ADM Date: 02/03/22 Loc: PS Room: Type: [facility] Attending Dr: Sarahi Gutierrez MD Ordering Provider: SARAHI GUTIERREZ MD Date of Service: 02/03/22 ECG/ECG 12 lead ECG: pst Copies to: Test Reason : Blood Pressure : / mmHG Vent. Rate : 086 BPM Atrial Rate : 086 BPM P-R Int : 144 ms QRS Dur : 106 ms QT Int : 360 ms P-R-T Axes : 054 031 044 degrees QTc Int : 430 ms Normal sinus rhythm Incomplete right bundle branch block Borderline ECG No previous ECGs available Confirmed by MARZENA BANDA DO ([id number]) on 02/03/2022 2:05:21 PM Referred By: LUPE Electronically Signed By:MARZENA BANDA DO Transcribed By: MUS Signed By Marzena Banda DO 02/03 1405 Normal [facility] Eosinophils Auto (Bld) [#/Vo l]Ordered By: SARAHI GUTIERREZ on 02-03-2022 Eosinophils (Bld) [#/Vol] 0.2 10*3/uL 0.0-0.45 [facility] Eosinophils/100 WBC Auto (Bl d)Ordered By: SARAHI GUTIERREZ on 02-03-2022 Eosinophils/100 WBC (Bld) 1.3 % . [facility] Erythrocyte distribution wid th Auto (RBC) [Ratio]Ordered By: SARAHI GUTIERREZ on 02-03-2022 Erythrocyte distribution width (RBC) [Ratio] 13.7 % 11.9-15.3 [facility] Estimated glomerular filtrat ion rate (GFR) non- AmericanOrdered By: SARAHI GUTIERREZ on 02-03-2022 GFR/1.73 sq M.predicted among non-blacks MDRD (S/P/Bld) [Vol rate/Area] > 60 mL/Min [facility] Hematocrit Auto (Bld) [Volum e fraction]Ordered By: SARAHI GUTIERREZ on 02-03-2022 Hematocrit (Bld) [Volume fraction] 36.2 % 34.0-46.4 [facility] Hemoglobin [Mass/volume] in BloodOrdered By: SARAHI GUTIERREZ on 02-03-2022 Hemoglobin (Bld) [Mass/Vol] 11.7 g/dL 11.8-15.4 [facility] Leukocytes [#/volume] correc logan for nucleated erythrocytes in Blood by Automated counOrdered By: SARAHI GUTIERREZ on 02-03-2022 WBC corrected for nucl RBC Auto (Bld) [#/Vol] 12.6 10*3/uL 3.8-11.6 [facility] Lymphocytes Auto (Bld) [#/Vo l]Ordered By: SARAHI GUTIERREZ on 02-03-2022 Lymphocytes (Bld) [#/Vol] 2.9 10*3/uL 1.00-4.8 [facility] Lymphocytes/100 WBC Auto (Bl d)Ordered By: SARAHI GUTIERREZ on 02-03-2022 Lymphocytes/100 WBC (Bld) 22.9 % . [facility] MCH Auto (RBC) [Entitic mass ]Ordered By: SARAHI GUTIERREZ on 02-03-2022 MCH (RBC) [Entitic mass] 27.7 pg 24.7-34.3 [facility] MCHC Auto (RBC) [Mass/Vol]Or dered By: SARAHI GUTIERREZ on 02-03-2022 MCHC (RBC) [Mass/Vol] 32.4 g/dL 32.0-35.0 [facility] MCV Auto (RBC) [Entitic vol] Ordered By: SARAHI GUTIERREZ on 02-03-2022 MCV (RBC) [Entitic vol] 85.7 fL 80-100 [facility] Monocytes Auto (Bld) [#/Vol] Ordered By: SARAHI GUTIERREZ on 02-03-2022 Monocytes (Bld) [#/Vol] 0.9 10*3/uL 0.0-0.8 [facility] Monocytes/100 WBC Auto (Bld) Ordered By: SARAHI GUTIERREZ on 02-03-2022 Monocytes/100 WBC (Bld) 6.9 % . [facility] Neutrophils Auto (Bld) [#/Vo l]Ordered By: SARAHI GUTIERREZ on 02-03-2022 Neutrophils (Bld) [#/Vol] 8.6 10*3/uL 1.8-7.7 [facility] Neutrophils/100 WBC Auto (Bl d)Ordered By: SARAHI GUTIERREZ on 02-03-2022 Neutrophils/100 WBC (Bld) 68.3 % . [facility] No Panel InformationOrdered By: SARAHI GUTIERREZ on 02-03-2022 Estimated GFR () > 60 mL/Min [facility] Comment on above: GFR estimated refere nce range: According to KDOQI guidelines, <60 ml/min/1.73m2 is sufficient to diagnose a patient with chronic kidney disease. Pharmacy Creatinine Clearance (Chem N/A [facility] Nucleated erythrocytes [Pres ence] in Blood by Automated countOrdered By: SARAHI GUTIERREZ on 02-03-2022 Nucleated RBC Auto Ql (Bld) 0.0 /100{WBC} 0-0.5 [facility] Platelet mean volume Auto (B ld) [Entitic vol]Ordered By: SARAHI GUTIERREZ on 02-03-2022 Platelet mean volume (Bld) [Entitic vol] 7.8 fL 6.3-10.7 [facility] Platelets Auto (Bld) [#/Vol] Ordered By: SARAHI GUTIERREZ on 02-03-2022 Platelets (Bld) [#/Vol] 335 10*3/uL 150-450 [facility] RBC Auto (Bld) [#/Vol]Ordere d By: SARAHI GUTIERREZ on 02-03-2022 RBC (Bld) [#/Vol] 4.22 10*6/uL 3.60-5.00 [facility] Serum or plasma anion gap de terminationOrdered By: SARAHI GUTIERREZ on 02-03-2022 Anion gap [Moles/Vol] 9.4 mmol/L 6.0-15.0 [facility] Serum or plasma calcium mary urement (mass/volume)Ordered By: SARAHI GUTIERREZ on 02-03-2022 Calcium [Mass/Vol] 9.2 mg/dL 8.2-10.2 [facility] Serum or plasma chloride morro surement (moles/volume)Ordered By: SARAHI GUTIERREZ on 02-03-2022 Chloride [Moles/Vol] 105 mmol/L 95-114 [facility] [place] Serum or plasma glucose mary urement (mass/volume)Ordered By: SARAHI GUTIERREZ on 02-03-2022 Glucose [Mass/Vol] 83 mg/dL 70-100 [facility] Comment on above: ADA recommended refe rence rangeRandom Glucose Reference Range is dependent on time and content of last meal. Glucose of more than 200 mg/dL in a nonstressed, ambulatory subject supports the diagnosis of Diabetes Mellitus. Serum or plasma potassium me asurement (moles/volume)Ordered By: SARAHI GUTIERREZ on 02-03-2022 Potassium [Moles/Vol] 3.9 mmol/L 3.5-5.1 [facility] Serum or plasma sodium measu rement (moles/volume)Ordered By: SARAHI GUTIERREZ on 02-03-2022 Sodium [Moles/Vol] 137 mmol/L 136-146 [facility] Serum or plasma total carbon dioxide measurement (moles/volume)Ordered By: SARAHI GUTIERREZ on 02-03-2022 CO2 [Moles/Vol] 26.5 mmol/L 22.0-30.0 [facility] Serum or plasma urea nitroge n measurement (mass/volume)Ordered By: SARAHI GUTIERREZ on 02-03-2022 Urea nitrogen [Mass/Vol] 11 mg/dL 9- [facility] WBC Auto (Bld) [#/Vol]Ordere d By: SARAHI GUTIERREZ on 02-03-2022 WBC (Bld) [#/Vol] 12.6 10*3/uL 3.8-11.6 [facility] US Pelvic, Transvaginalon US Pelvic, Transvaginal HISTORY: Pelvic pain FINDINGS: Uterus 8.6 x 5.7 x 4.6 cm Endometrium 7 mm Right Ovary6.8 x 6.6 x 6.4 cm (see below) Left Ovary2.8 x 2.4 x 1.8 cm Normal uterine orientation. Multiple heterogeneous intramural masses consistent with multifocal fibroid formation, largest approximates 2.0 x 2.5 cm. Grossly normal appearing endometrium, minimal displacement from the myometrial process. No pelvic fluid. Normal left ovary. Right ovarian enlargement, majority of which comprised of a homogeneous, hypoechogenic mass, morphology of which most consistent with endometrioma. No shadowing or increase in vascularity. IMPRESSION: 1. Right ovarian mass, likely endometrioma 2. Uterine findings consistent with multiple intramural fibroids Report reported and signed by Alexx Bullard on 11/23/2021 0712 Normal [facility] Covid-19 PCR (CVDTB)on 10-20 SARS-CoV-2 (COVID-19) RNA VEE+probe Ql (Unsp spec) Not detected Normal NOT DETECTED [facility] Comment on above: Result Comment: This test is not yet approved or cleared by the [place] FDA. When there are no FDA-approved or cleared tests available, and other criteria are met, FDA can make tests available under an emergency access mechanism called an Emergency Use Authorization (EUA). The EUA for this test is supported by the [place] of Health and Human Service's (HHS's) declaration that circumstances exist to justify the emergency use of in vitro diagnostics for the detection and/or diagnosis of the virus that causes COVID-19. This EUA will remain in effect (meaning this test can be used) for the duration of the COVID-19 declaration justifying emergency of IVDs, unless it is terminated or revoked by FDA (after which the test may no longer be used). When diagnostic testing is negative, the possibility of a false negative should be considered in the context of a patient's recent exposures and the presence of clinical signs and symptoms consistent with SARS-CoV-2. Performed By: #### C VDTB #### [facility] [address] [place] [address] Johnie Guerra [facility]20 SARS-CoV-2 (COVID-19) RNA VEE+probe Ql (Unsp spec) Not detected Normal NOT DETECTED [facility] Comment on above: Result Comment: This test is not yet approved or cleared by the [place] FDA. When there are no FDA-approved or cleared tests available, and other criteria are met, FDA can make tests available under an emergency access mechanism called an Emergency Use Authorization (EUA). The EUA for this test is supported by the [place] of Health and Human Service's (HHS's) declaration that circumstances exist to justify the emergency use of in vitro diagnostics for the detection and/or diagnosis of the virus that causes COVID-19. This EUA will remain in effect (meaning this test can be used) for the duration of the COVID-19 declaration justifying emergency of IVDs, unless it is terminated or revoked by FDA (after which the test may no longer be used). When diagnostic testing is negative, the possibility of a false negative should be considered in the context of a patient's recent exposures and the presence of clinical signs and symptoms consistent with SARS-CoV-2. Performed By: #### C VDTBH, CVDAGS #### [facility] [address] [place], [place] [address] Johnie Geurra SYMPTOMATIC COVID-19 ANTIGEN on 10-12-2020 EUA Statement SEE BELOW Normal [facility] Comment on above: Result Comment: This test has not been FDA cleared or approved, but has been authorized by the FDA under an Emergency Use Authorization (EUA) for use by authorized laboratories certified under CLIA that meet the requirements to perform moderate or high complexity testing. This test has been authorized only for the detection of proteins from SARS-CoV-2, not for any other viruses or pathogens. The emergency use of this test is authorized for the duration of the declaration that circumstances exist justifying the authorization of emergency use of in vitro diagnostic tests for detection and/or diagnosis of Covid-19 under section 564(b)(1) of the Act, 21 U.S.C. 360bbb-3(b)(1), unless the declaration is terminated or authorization is revoked sooner. Performed By: #### C MÓNICA, CVDAGS #### [facility] [address] [place] [id number] Johnie Guerra SARS-CoV-2 (COVID-19) RNA VEE+probe Ql (Unsp spec) Negative Normal NEGATIVE [facility] Comment on above: Result Comment: CONF IRMATION BY PCR PENDING PER CDC GUIDELINES/ SYMPTOMATIC PATIENT. Performed By: #### C VDMARIOH, CVDAGS #### [facility] [address] [place], [place] [id number] Johnie Guerra Vital Signs Date Time Vital Sign Value Performing Clinician Faci lity 04-21-2024 08:09-0500 Body mass index (BMI) [Ratio] 46.31 kg/m2 Telma Irvin MD Work Phone: [facility] 04-21-2024 08:09-0500 Body temperature 96.8 [degF] Telma Irvin MD Work Phone: [facility] 04-21-2024 08:09-0500 Body weight 122.38 kg Telma Irvin MD Work Phone: [facility] 04-21-2024 08:09-0500 Diastolic blood pressure 88 mm[Hg] Telma Irvin MD Work Phone: [facility] 04-21-2024 08:09-0500 Heart rate 91 /min Telma Irvin MD Work Phone: [facility] 04-21-2024 08:09-0500 SaO2% (BldA) [Mass fraction] 97 % Telma Irvin MD Work Phone: [facility] 04-21-2024 08:09-0500 Systolic blood pressure 134 mm[Hg] Telma Irvin MD Work Phone: [facility] 01-09-2024 09:40-0500 Body height 162.6 cm Telma Irvin MD Work Phone: [facility] 01-09-2024 09:40-0500 Body mass index (BMI) [Ratio] 46.89 kg/m2 Telma Irvin MD Work Phone: [facility] 01-09-2024 09:40-0500 Body weight 123.92 kg Telma Irvin MD Work Phone: [facility] 01-09-2024 09:40-0500 Diastolic blood pressure 94 mm[Hg] Telma Irvin MD Work Phone: [facility] 01-09-2024 09:40-0500 Heart rate 92 /min Telma Irvin MD Work Phone: [facility] 01-09-2024 09:40-0500 Respiratory rate 18 /min Telma Irvin MD Work Phone: [facility] 01-09-2024 09:40-0500 SaO2% (BldA) [Mass fraction] 99 % Telma Irvin MD Work Phone: [facility] 01-09-2024 09:40-0500 Systolic blood pressure 142 mm[Hg] Telma Irvin MD Work Phone: [facility] 04-05-2023 15:21-0500 Body height 162.6 cm Telma Irvin MD Work Phone: [facility] 04-05-2023 15:21-0500 Body mass index (BMI) [Ratio] 44.77 kg/m2 Telma Irvin MD Work Phone: [facility] 04-05-2023 15:21-0500 Body weight 118.3 kg Telma Irvin MD Work Phone: [facility] 04-05-2023 15:21-0500 Diastolic blood pressure 70 mm[Hg] Telma Irvin MD Work Phone: [facility] 04-05-2023 15:21-0500 Heart rate 78 /min Telma Irvin MD Work Phone: [facility] 04-05-2023 15:21-0500 SaO2% (BldA) [Mass fraction] 97 % Telma Irvin MD Work Phone: [facility] 04-05-2023 15:21-0500 Systolic blood pressure 130 mm[Hg] Telma Irvin MD Work Phone: [facility] Healthcare Encounters Encounter Date Encounter Type Care Provider Facility Start: 08-21-2024 End: 08-25-2024 Telephone encounter Herlinda Ferrari NP Work Phone: [facility] Comment on above: asking about pain me dication Start: 06-26-2024 End: 06-26-2024 Bamboo flowsheet Herlinda Ferrari TEST WORKER Work Phone: [facility] Start: 06-26-2024 End: 06-26-2024 Bamboo flowsheet Herlinda Ferrari TEST WORKER Work Phone: [facility] Start: 06-26-2024 End: 06-26-2024 Office outpatient visit 25 minutes Herlinda Ferrari TEST WORKER Work Phone: [facility] Comment on above: Primary osteoarthrit is of left knee (Primary Dx); Right knee pain, unspecified chronicity; Left knee pain, unspecified chronicity; Primary osteoarthritis of right knee Start: 06-26-2024 End: 06-26-2024 ambulatory HERLINDA FERRARI Not Available Start: 04-23-2024 End: 04-23-2024 Orders Only Telma Irvin MD Work Phone: [facility] Comment on above: Hyperlipidemia, unsp ecified hyperlipidemia type (CMS/HCC) (Primary Dx) Start: 04-21-2024 End: 04-21-2024 Bamboo flowsheet Telma Irvin MD Work Phone: [facility] Start: 04-21-2024 End: 04-21-2024 Bamboo flowsheet Telma Irvin MD Work Phone: [facility] Start: 04-21-2024 End: 04-21-2024 Patient encounter status Telma Irvin MD Work Phone: [facility] Work Phone: Start: 04-21-2024 End: 04-21-2024 Periodic preventive med est patient 40-64yrs Telma Irvin MD Work Phone: [facility] Comment on above: Routine general medi christina examination at a health care facility (Primary Dx); Bipolar I disorder, current or most recent episode depressed, in partial remission (CMS/HCC); Status post total abdominal hysterectomy and bilateral salpingo-oophorectomy; Bipolar affective disorder, currently depressed, moderate (CMS/HCC); Encounter for screening for malignant neoplasm of colon; Breast screening; Encounter for screening mammogram for malignant neoplasm of breast Start: 04-21-2024 End: 04-21-2024 ambulatory TELMA IRVIN Not Available Start: 02-29-2024 End: 02-29-2024 ambulatory MD THOM ZAVALA Facility:[facility] Start: 02-29-2024 End: 02-29-2024 Patient encounter procedure THOM ZAVALA [facility] Start: 01-28-2024 End: 01-28-2024 ambulatory HERLINDA FERRARI Not Available Start: 01-28-2024 End: 01-28-2024 Office outpatient visit 25 minutes Herlinda Ferrari TEST WORKER Work Phone: [facility] Comment on above: Primary osteoarthrit is of left knee (Primary Dx); Left knee pain, unspecified chronicity Start: 01-15-2024 End: 01-15-2024 ambulatory HERLINDA FERRARI Not Available Start: 01-15-2024 End: 01-15-2024 Office outpatient new 30 minutes Herlinda Ferrari TEST WORKER Work Phone: [facility] Comment on above: Left knee pain, unsp ecified chronicity; Internal derangement of left knee Start: 01-14-2024 End: 01-14-2024 Refill Telma Irvin MD Work Phone: [facility] Comment on above: Bipolar I disorder, current or most recent episode depressed, in partial remission (CMS/HCC); Bipolar affective disorder, currently depressed, moderate (CMS/HCC) Start: 01-09-2024 End: 01-09-2024 Bamboo flowsheet Telma Irvin MD Work Phone: [facility] Start: 01-09-2024 End: 01-09-2024 Bamboo flowsheet Telma Irvin MD Work Phone: [facility] Start: 01-09-2024 End: 01-09-2024 Office outpatient visit 25 minutes Telma Irvin MD Work Phone: [facility] Comment on above: Nephrolithiasis (Caty telma Dx); Elevated glucose; Internal derangement of left knee Start: 01-09-2024 End: 01-09-2024 ambulatory TELMA IRVIN Not Available Start: 01-08-2024 ambulatory MD THOM ZAVALA Facility:[facility] Start: 04-05-2023 End: 04-05-2023 Office outpatient visit 15 minutes Telma Irvin MD Work Phone: [facility] Comment on above: Tachycardia (Primary Dx); Altered urinary elimination pattern Start: 04-05-2023 Bamboo flowsheet Telma Irvin MD Work Phone: [facility] Start: 04-05-2023 Bamboo flowsheet Telma Irvin MD Work Phone: [facility] Start: 02-17-2022 End: 02-18-2022 ambulatory Telma Irvin Facility:[facility] Start: 02-15-2022 End: 02-15-2022 ambulatory Sarahi Gutierrez Facility:[facility] Start: 02-15-2022 End: 02-15-2022 ambulatory MD Telma Irvin Work Phone: [facility] Work Phone: Start: 02-15-2022 End: 02-15-2022 Patient encounter procedure MD Telma Irvin Work Phone: [facility] Work Phone: Start: 02-03-2022 End: 02-03-2022 ambulatory Telma Irvin Facility:[facility] Start: 02-03-2022 End: 02-03-2022 ambulatory MD Telma Irvin Work Phone: [facility] Work Phone: Start: 02-03-2022 End: 02-03-2022 Patient encounter procedure MD Telma Irvin Work Phone: [facility] Start: 11-01-2020 End: 11-01-2020 ambulatory SUSANNE CARL Facility:[facility] Start: 10-12-2020 End: 10-13-2020 ambulatory SUSANNE CARL Facility:[facility] Procedures Date Procedure Procedure Detail Performing Clinician Start: 06-26-2024 Arthrocentesis aspir &/inj major jt/bursa w/o us Herlinda Ferrari TEST WORKER Work Phone: Start: 06-26-2024 Arthrocentesis aspir &/inj major jt/bursa w/o us Herlinda Ferrari TEST WORKER Work Phone: Start: 06-26-2024 End: 06-26-2024 Radiologic examination knee 1/2 views Herlinda Ferrari TEST WORKER Work Phone: Start: 01-28-2024 Arthrocentesis aspir &/inj major jt/bursa w/o us Herlinda Ferrari TEST WORKER Work Phone: Start: 02-15-2022 SARS Antigen (LFIA) MD Telma Irvin Work Phone: Start: 12-15-2021 Mammography Telma Irvin MD Work Phone: Plan of Treatment Date Care Activity Detail Author Start: 05-04-2027 Screening for malign ant neoplasm of colon [facility] Start: 04-28-2025 Screening for malign ant neoplasm of cervix [facility] Start: 10-20-2024 Influenza vaccination [facility] Start: 08-18-2024 Influenza vaccination Influenza Vacc ine (#1) [facility] Comment on above: Postponed from 10/20 (Patient Refused) Start: 07-24-2024 End: 07-24-2024 Patient encounter procedure 07/24/2024 3:00 PM EDT Office Visit [facility] [address] [place] [phone] Herlinda Ferrari, TEST WORKER [address] [place] [address] [facility] Start: 06-26-2024 End: 06-26-2024 Patient encounter procedure 06/26/2024 1:30 PM EDT Office Visit [facility] [address] [place] [phone] Herlinda Ferrari, TEST WORKER [address] [place] [address] Arrived [facility] Comment on above: Arrived Start: 05-02-2024 End: 05-02-2024 Professional / ancillary services management 05/02/2024 9:00 AM EDT Ancillary Procedure [facility] [address] [facility] [address] [place] [phone] [facility] Start: 04-21-2024 End: 04-21-2025 CBC W Auto Differential panel - Blood CBC and differential Lab Routine Routine general medical examination at a health care facility Expected: 04/21/2024 (Approximate), Expires: 04/21/2025 [facility] Comment on above: Expected: 04/21/2024 (Approximate), Expires: 04/21/2025 Start: 04-21-2024 End: 04-21-2025 Comprehensive metabolic 2000 panel - Serum or Plasma Comprehensive metabolic panel Lab Routine Routine general medical examination at a health care facility Expected: 04/21/2024, Expires: 04/21/2025 [facility] Work Phone: Comment on above: Expected: 04/21/2024 , Expires: 04/21/2025 Start: 04-21-2024 End: 06-21-2025 DBT Breast - bilateral screening Bilateral screening mammogram with tomosynthesis Imaging Routine Breast screening Encounter for screening mammogram for malignant neoplasm of breast Expected: 04/21/2024, Expires: 06/21/2025 [facility] Comment on above: Expected: 04/21/2024 , Expires: 06/21/2025 Start: 04-21-2024 End: 04-21-2025 Lipid 1996 panel - Serum or Plasma Lipid panel Lab Routine Routine general medical examination at a health care facility Expected: 04/21/2024 (Approximate), Expires: 04/21/2025 [facility] Comment on above: Expected: 04/21/2024 (Approximate), Expires: 04/21/2025 Start: 04-21-2024 End: 04-21-2025 Noninvasive colorectal cancer DNA and occult blood screening [Presence] in Stool Cologuard colon cancer screening Lab Routine Encounter for screening for malignant neoplasm of colon Expected: 04/21/2024 (Approximate), Expires: 04/21/2025 [facility] Comment on above: Expected: 04/21/2024 (Approximate), Expires: 04/21/2025 Start: 04-21-2024 End: 04-21-2024 Patient encounter procedure 04/21/2024 8:00 AM EST Office Visit [facility] [address] [place] [phone] Telma Irvin MD [address] [place] [address] Arrived [facility] Comment on above: Arrived Start: 02-25-2024 End: 02-25-2024 Patient encounter procedure 02/25/2024 8:30 AM EST Office Visit [facility] [address] [place] [phone] Herlinda Ferrari, TEST WORKER [address] [facility] [place] [address] [facility] Start: 01-15-2024 End: 01-15-2024 Patient encounter procedure 01/15/2024 9:00 AM EST Office Visit [facility] [address] [place] [phone] Herlinda Ferrari, TEST WORKER [address] [facility], [place] [phone] [facility] Start: 01-09-2024 End: 01-08-2025 Hemoglobin A1c/Hemoglobin.total in Blood Hemoglobin A1c Lab Routine Elevated glucose Expected: 01/09/2024 (Approximate), Expires: 01/08/2025 [facility] Comment on above: Expected: 01/09/2024 (Approximate), Expires: 01/08/2025 Start: 01-09-2024 End: 01-08-2025 Urate [Mass/volume] in Serum or Plasma Uric acid Lab Routine Nephrolithiasis Expected: 01/09/2024 (Approximate), Expires: 01/08/2025 [facility] Work Phone: Comment on above: Expected: 01/09/2024 (Approximate), Expires: 01/08/2025 Start: 01-09-2024 End: 01-09-2024 Patient encounter procedure 01/09/2024 9:40 AM EST Office Visit [facility] [address] [place] [address] Telma Irvin MD [address] [place], [place] [phone] Arrived [facility] Comment on above: Arrived Start: 10-21-2023 Influenza vaccination Influenza Vacc ine (#1) [facility] Start: 04-05-2023 End: 04-05-2023 Patient encounter procedure 04/05/2023 3:20 PM EST Office Visit [facility] [address] [facility] [place] [phone] Telma Irvin MD [address] [facility] [place], [place] [phone] Arrived [facility] Comment on above: Arrived Start: 04-05-2023 End: 04-05-2025 Cardiac event monitor Cardiac event monitor Cardiac Services Routine Tachycardia Expected: 04/05/2023 (Approximate), Expires: 04/05/2025 [facility] Comment on above: Expected: 04/05/2023 (Approximate), Expires: 04/05/2025 Start: 04-05-2023 End: 04-05-2024 CBC W Auto Differential panel - Blood CBC and differential Lab Routine Tachycardia Expected: 04/05/2023 (Approximate), Expires: 04/05/2024 [facility] Comment on above: Expected: 04/05/2023 (Approximate), Expires: 04/05/2024 Start: 04-05-2023 End: 04-05-2024 Comprehensive metabolic 2000 panel - Serum or Plasma Comprehensive metabolic panel Lab Routine Tachycardia Expected: 04/05/2023, Expires: 04/05/2024 [facility] Comment on above: Expected: 04/05/2023 , Expires: 04/05/2024 Start: 04-05-2023 End: 04-05-2024 TSH W/REFLEX TO FT4 TSH W/REFLEX TO FT4 Lab Routine Tachycardia Expected: 04/05/2023 (Approximate), Expires: 04/05/2024 [facility] Work Phone: Comment on above: Expected: 04/05/2023 (Approximate), Expires: 04/05/2024 Start: 12-15-2022 Screening for malign ant neoplasm of breast Mammogram [facility] Start: 10-20-2022 Influenza vaccination Influenza Vacc ine (#1) [facility] Start: 1999 Screening for malign ant neoplasm of cervix Pap Smear [facility] Start: 1978 Screening for malign ant neoplasm of colon [facility] Immunizations Immunization Date Immunization Notes Care Provider Fa cility 02-26-2021 COVID-19 mRNAJatin (Pfizer) MD Telma Irvin Work Phone: [facility] 06-08-2020 COVID-19 Jatin Ruiz (Pfizer) MD Telma Irvin Work Phone: [facility] 05-14-2020 COVID-19 mRNAJatin (Pfizer) MD Telma Irvin Work Phone: [facility] 06-14-2018 tetanus toxoid, redu pamella diphtheria toxoid, and acellular pertussis vaccine, adsorbed Telma Irvin MD Work Phone: [facility] Payers Date Payer Category Payer Medicaid (Managed Care) SHANNAN LINDQUIST [id number] 2024 Unknown [id number] 2024 Private Health Insurance [id number] 2024 Medicaid [id number] 2023 Managed Care HMO (unspecified) [id number] 2023 Private Health Insurance [id number] 2022 Unknown [id number] 2022 Self-pay [id number] 2022 Unknown [id number] 1978 Unknown [id number] 1978 Unknown [id number] 1978 Unknown [id number] 1978 Unknown [id number] 1978 Unknown [id number] 1978 Unknown [id number] [id number] 1978 Unknown [id number] 1978 Unknown [id number] .[id number] 1978 Unknown [id number] 1959 Private Health Insurance [id number] Unknown [id number] Unknown [id number] Unknown [id number] Social History Date Type Detail Facility Start: 02-03-2022 End: 01-09-2024 Tobacco smoking status AKIS Ex-smoker (finding) [facility] Start: 1980 Sex Assigned At Female [facility] Start: 02-19-1993 End: 12-02-2013 History of tobacco use Current smoker [facility] Start: 02-19-1993 End: 12-02-2013 History of tobacco use Cigarette Smoker [facility] Start: 07-10-2022 End: 01-09-2024 Tobacco use and exposure Smokeless tobacco non-user [facility] Start: 02-07-2023 End: 01-15-2024 Alcohol intake Current drinker of alcohol (finding) [facility] Start: 02-07-2023 End: 01-08-2024 Alcohol intake [facility] Start: 07-09-2022 End: 01-08-2024 Humiliation, Afraid, Rape, and Kick questionnaire [HARK] [facility] Within the last year , have you been afraid of your partner or ex-partner? No [facility] How often do you att end evangelical or methodist services? Patient declined [facility] Are you now , , , , never or living with a partner? [facility] How often to you hav e a drink containing alcohol? Monthly or less [facility] How many standard dr inks containing alcohol do you have on a typical day? 1 or 2 [facility] How often do you hav e 6 or more drinks on 1 occasion? Less than monthly [facility] How hard is it for y ou to pay for the very basics like food, housing, medical care, and heating Somewhat hard [facility] Do you feel stress - tense, restless, nervous, or anxious, or unable to sleep at night because your mind is troubled all the time - these days [OSQ] Not at all [facility] (I/We) worried wheth er (my/our) food would run out before (I/we) got money to buy more. Never true [facility] In the past 12 month s, was there a time when you were not able to pay the mortgage or rent on time? Yes [facility] Start: 08-05-2022 Education 13 [facility] Start: 08-05-2022 Alcohol Comment caffeine intake : 2-3 cups per day [facility] Start: 07-06-2022 Sexual orientation Homosexual (finding) [facility] How often do you hav e 6 or more drinks on 1 occasion? Never [facility] (I/We) worried wheth er (my/our) food would run out before (I/we) got money to buy more. Sometimes true [facility] History of tobacco use Cigar Smoker [facility] Start: 04-21-2024 End: 06-26-2024 Alcoholic beverage intake Ex-drinker (finding) [facility] How often do you nee d to have someone help you when you read instructions, pamphlets, or other written material from your doctor or pharmacy [SILS] Sometimes [facility] Goals Date Patient Goal Desired Activity /State Personal health goal Clinical Notes 04-05-2023 to 08-25-2024 Telephone Encounter - Herlinda Ferrari NP - 08/25/2024 8:37 AM EDTTelephone Encounter - Herlinda Ferrari NP - 08/25/2024 8:37 AM EDTTelephone Encounter - Doreen Schulte - 08/21/2024 11:40 AM EDT Note Date & Type Note Facility 08-25-2024 Telephone encounter Note Rx sent to patient. She is not to take any other NSAIDs (ibuprofen, advil, aleve). She should call with any worsening symptoms and stop with any GI pain/symptoms. [facility] 08-25-2024 Miscellaneous Notes Rx sent to patient. She is not to take any other NSAIDs (ibuprofen, advil, aleve). She should call with any worsening symptoms and stop with any GI pain/symptoms. Florencia called and said that she is asking about Celebrex as a prescription? She doesn't have the money to come back in right now but wanted to know if you could call that in her for her? documented in this encounter [facility] 08-21-2024 Telephone encounter Note Florencia called and said that she is asking about Celebrex as a prescription? She doesn't have the money to come back in right now but wanted to know if you could call that in her for her? [facility] 06-26-2024 History of Present illness Narrative Associated Order(s): L Inj/Asp: L knee; L Inj/Asp: R knee Post-Procedure Diagnose(s): Primary osteoarthritis of left knee; Primary osteoarthritis of right knee Images from the original note were not included. HISTORY OF PRESENT ILLNESS: EST PT Florencia Ang is an 44 y.o. @ female. (EST PT) (L) KNEE PAIN FOR A WHILE. XRAY TODAY EPIC 06/26/24 XRAY EPIC 07/25/22 DEPO INJECTION 01/28/24 HX IA INJECTION IN LT KNEE- LITTLE RELIEF HX MDP, MDP 01/15/24 HX PHYSICAL THERAPY @ [facility] PAIN ANTERIOR KNEE. PAIN POSTERIOR WHEN SHE STANDS. TIGHTNESS POSTERIOR WITH EXTENSION. PAIN IS WORSE WITH STANDING AND WALKING. DENIES RADIATION. +IBU PRN. +ICE. +STIFFNESS. DIFFICULTY GETTING IN AND OUT OF VEHICLE. +GIVING OUT. DENIES N/T. +GRINDING. HAS DON MED KNEE BRACES BUT STATES IT DIGS INTO HER THIGH. WAKES AT HS. (EST PT) RT KNEE PAIN FOR A WHILE. XRAY TODAY EPIC 06/26/24 HX INJECTIONS IN THE PAST HX PHYSICAL THERAPY @ [facility] HX FX AGE 9. PAIN MEDIAL KNEE WITH SITTING OR WHEN SLEEPING. TIGHTNESS POSTERIOR WITH EXTENSION. PAIN IS PRETTY CONSTANT. PAIN SITTING IN A CAR. +IBU PRN, +ICE. DENIES N/T. +CATCHING. DENIES POPPING, GRINDING. DENIES GIVING OUT. HAS DON MED KNEE BRACES BUT STATES IT DIGS INTO HER THIGH. WAKES AT HS. HAS BEEN WORKING [employer] FOR THE LAST MONTH, INCREASED PAIN. ALLERGIES: Allergies Allergen Reactions Lamictal [Lamotrigine] Rash Penicillins Rash HOME MEDICATIONS: Current Outpatient Medications Medication Instructions ARIPiprazole (ABILIFY) 10 mg, Oral, Daily atorvastatin (LIPITOR) 20 mg, Oral, Daily glucosamine-chondroitin 500-400 MG tablet 1 tablet, 3 times daily ondansetron ODT (Zofran-ODT) 4 MG disintegrating tablet DISSOLVE 1 (ONE) TABLET on the tongue EVERY 8 HOURS NEEDED FOR NAUSEA AND VOMITING sertraline (ZOLOFT) 100 mg, Oral, Every morning tamsulosin (FLOMAX) 0.4 mg, Daily traMADol (ULTRAM) 50 mg, Every 8 hours PRN PHYSICAL EXAM: Knee Musculoskeletal Exam Inspection Leg length disparity: no discrepancy Right Erythema: none Effusion: mild Edema: none Ecchymosis: none Deformity: none Alignment: varus Left Erythema: none Effusion: mild Edema: none Ecchymosis: none Deformity: none Alignment: varus Palpation Right Right knee palpation is unremarkable. Increased warmth: none Masses: none Crepitus: patellofemoral and medial Tenderness: present Medial joint line: moderate Patella: mild Left Left knee palpation is unremarkable. Increased warmth: none Masses: none Crepitus: patellofemoral and medial Tenderness: present Medial joint line: mild Patella: moderate Range of Motion Right Right knee range of motion is normal and full. Active extension: 0 Active flexion: 115 Passive flexion: 120 Left Left knee range of motion is normal and full. Active extension: 0 Active flexion: 115 Passive flexion: 120 Strength Right Right knee strength is normal. Extension: 5/5. Extension is affected by pain. Flexion: 5/5. Flexion is affected by pain. Left Left knee strength is normal. Extension: 5/5. Extension is affected by pain. Flexion: 5/5. Flexion is affected by pain. Instability Right Instability signs: none - stable Anterior drawer: normal Left Instability signs: none - stable Anterior drawer: normal Neurovascular Right Right knee neurovascular exam is normal. Pulses - PT: normal Posterior tibial: 2+ Capillary refill: warm and well-perfused Left Left knee neurovascular exam is normal. Pulses - PT: normal Posterior tibial: 2+ Capillary refill: warm and well-perfused Special Signs Right Right knee special signs are normal. Left Left knee special signs are normal. General Constitutional: appears stated age Labored breathing: no Psychiatric: normal mood and affect Neurological: alert Skin: intact Lymphadenopathy: none Vitals: There is no height or weight on file to calculate BMI. Tobacco Use: Medium Risk (06/26/2024) Patient History Smoking Tobacco Use: Former Smokeless Tobacco Use: Never Passive Exposure: Not on file Alcohol Use: Not At Risk (01/08/2024) AUDIT-C Frequency of Alcohol Consumption: Monthly or less Average Number of Drinks: 1 or 2 Frequency of Binge Drinking: Never IMAGING: XR knee 1 or 2 views right Imaging Result: 06/26/2024: X-rays AP and lateral [...] of the right knee with varus alignment Herlinda Anthony VANESSAN-APPLIANCE FIXER XR knee 1 or 2 views left Imaging Result: Imaging Result: X-rays AP and [...] of the left knee with varus alignment Herlinda Ferrari SOFTWARE DEVELOPMENT INTERN-APPLIANCE FIXER L Inj/Asp: L knee on 06/26/2024 7:23 PM Indications: pain Details: 21 G needle, anterolateral approach Medications: 40 mg methylPREDNISolone acetate 40 MG/ML Outcome: tolerated well, no immediate complications Site was cleaned with isopropyl alcohol Procedure, treatment alternatives, risks and benefits explained, specific risks discussed. Consent was given by the patient. L Inj/Asp: R knee on 06/26/2024 7:23 PM Indications: pain Details: 21 G needle, anterolateral approach Medications: 40 mg methylPREDNISolone acetate 40 MG/ML Outcome: tolerated well, no immediate complications Site cleaned with isopropyl alcohol Procedure, treatment alternatives, risks and benefits explained, specific risks discussed. Consent was given by the patient. Orders Placed This Encounter Procedures L Inj/Asp This order was created via procedure documentation L Inj/Asp This order was created via procedure documentation XR knee 1 or 2 views right Is the patient ?: No Reason for exam:: pain XR knee 1 or 2 views left Is the patient ?: No Reason for exam:: pain ASSESSMENT: ICD-10-CM 1. Primary osteoarthritis of left knee M17.12 2. Right knee pain, unspecified chronicity M25.561 XR knee 1 or 2 views right 3. Left knee pain, unspecified chronicity M25.562 XR knee 1 or 2 views left 4. Primary osteoarthritis of right knee M17.11 PLAN: I reviewed xray findings with the patient and discussed treatment options, answered questions. I discussed with the patient the option of an injection for both her left and right knee. I advised the patient of risks associated with an injection including a reaction to medication, infection, failure to improve and possible worsening. The patient demonstrated understanding. Patient requesting injection. Skin Cleansed with alcohol swab. Utilizing aseptic technique patient given 40mg Depomedrol was injected into both knee. Patient tolerated this well. Neurovasc intact s/p injection. Post injection care instructions discussed. I discussed with the patient the risks associated with nonsteroidal anti-inflammatory medication. This included the risk of bleeding, GI ulceration, renal failure and sudden cardiac event. The patient was instructed on the proper way to take the medication. The patient was advised to stop the medication if any side effects occur. The patient was advised to contact their primary care physician or us or go to the ER if the patient is experiencing side effects. Questions answered in laymen terms at the bedside. The diagnosis, home exercise plan and any ongoing restrictions/ recommendations reviewed. If unable to be reached in office, I recommend evaluation at nearest Emergency Room if any symptoms worsened or new symptoms develop for requiring urgent evaluation. LUCAS Tran APRN documented in this encounter [facility] 04-21-2024 History of Present illness Narrative Images from the original note were not included. Florencia Ang is a 44 y.o. female presents with chief complaint of Annual Exam and Depression HPI: HPI History of Present Illness The patient presents for evaluation of depression, left knee pain, and weight management. She reports a recent exacerbation of her depressive symptoms, which she attributes to increased stress levels over the past week. She does not endorse any suicidal ideation. Her sleep pattern has been irregular, with frequent napping during her days off and prolonged nighttime sleep of approximately 8 to 10 hours. She expresses a desire to engage in outdoor activities such as yard work once the weather improves, hoping that these activities will contribute to her overall well-being. She has previously been prescribed Wellbutrin but discontinued its use due to adverse effects, including self-harm tendencies. She has not undergone any screening for colon cancer to date. She reports no respiratory distress or chest pain. She has recently obtained health insurance and has scheduled a dental appointment. She reports normal bowel movements. She had a kidney stone in 11/2023 but has not experienced any subsequent issues. She has been experiencing persistent soreness in her left knee. Despite receiving an injection from Dr. Jesus, the relief was only partial. The pain is absent at rest but is triggered by certain sleeping positions and prolonged standing during the day. Dr. Jesus has recommended radiographic imaging as the next step in her management. She has been making dietary modifications, including reducing her intake of soda and increasing her consumption of water, juice, and tea. However, she reports difficulty in losing weight despite these efforts. SOCIAL HISTORY The patient tried to quit smoking in her 20s using Wellbutrin. MEDICATIONS Current: sertraline Past: Wellbutrin SUBJECTIVE: MEDICATIONS: Current Outpatient Medications Medication Instructions ARIPiprazole (ABILIFY) 10 mg, Oral, Daily glucosamine-chondroitin 500-400 MG tablet 1 tablet, 3 times daily methylPREDNISolone (Medrol Dospak) 4 MG tablets Follow schedule on package instructions ondansetron ODT (Zofran-ODT) 4 MG disintegrating tablet DISSOLVE 1 (ONE) TABLET on the tongue EVERY 8 HOURS NEEDED FOR NAUSEA AND VOMITING sertraline (ZOLOFT) 50 mg, Oral, Every morning tamsulosin (FLOMAX) 0.4 mg, Daily traMADol (ULTRAM) 50 mg, Every 8 hours PRN ALLERGIES: Allergies Allergen Reactions Lamictal [Lamotrigine] Rash Penicillins Rash SURGICAL HISTORY: Past Surgical History: Procedure Laterality Date BREAST BIOPSY Right 10/2015 CT ANGIOGRAM CHEST 11/20/2020 CT ANGIOGRAM CHEST [facility] DATA LEGACY CT ANGIOGRAM HEART CORONARY 11/18/2020 CT ANGIOGRAM TAVR 11/18/2020 EGD 1990 swallowed a quarter LAPAROSCOPIC HYSTERECTOMY 01/2022 [facility], BSO OTHER SURGICAL HISTORY 02/1997 TONSILLECTOMY WISDOM TOOTH EXTRACTION 2002 FAMILY HISTORY: Family History Problem Relation Name Age of Onset Depression Mother Tanja takes Effexor Asthma Mother Tanja Mental illness Mother Tanja Hyperlipidemia Father Joe Diabetes Father Joe Prostate cancer Father Joe Other (hypertension) Father Joe No Known Problems Sister No Known Problems Brother Stroke Maternal Grandfather Vikas Cancer Paternal Grandmother Samantha Depression Mother's Sister Patricia Anxiety disorder Mother's Sister Patricia SOCIAL HISTORY: Social History Tobacco Use Smoking status: Former Current packs/day: 0.00 Average packs/day: 1 pack/day for 10.0 years (10.0 ttl pk-yrs) Types: Cigarettes, Cigars Start date: 1993 Quit date: 12/02/2013 Years since quittin.3 Smokeless tobacco: Never Substance Use Topics Alcohol use: Not Currently Alcohol/week: 1.0 standard drink of alcohol Comment: caffeine intake : 2-3 cups per day Drug use: Never Depression: Not at risk (01/09/2024) PHQ-2 PHQ-2 Score: 0 REVIEW OF SYMPTOMS: Review of Systems Respiratory: Negative. Cardiovascular: Negative. OBJECTIVE: Visit Vitals BP 134/88 (BP Location: Right arm, Patient Position: Sitting, BP Cuff Size: Large adult) Pulse 91 Temp 96.8 F (Temporal) Wt 269 lb 12.8 oz SpO2 97% BMI 46.31 kg/m Smoking Status Former BSA 2.35 m Physical Exam Constitutional: Appearance: Normal appearance. She is normal weight. HENT: Head: Normocephalic and atraumatic. Nose: Nose normal. Mouth/Throat: Mouth: Mucous membranes are moist. Eyes: Pupils: Pupils are equal, round, and reactive to light. Cardiovascular: Rate and Rhythm: Normal rate and regular rhythm. Heart sounds: No murmur heard. Pulmonary: Effort: Pulmonary effort is normal. Breath sounds: Normal breath sounds. No wheezing or rhonchi. Musculoskeletal: General: No swelling. Cervical back: Normal range of motion and neck supple. Right lower leg: No edema. Left lower leg: No edema. Skin: General: Skin is warm and dry. Findings: No rash. Neurological: Mental Status: She is alert and oriented to person, place, and time. Sensory: No sensory deficit. Gait: Gait normal. Psychiatric: Mood and Affect: Mood normal. Thought Content: Thought content normal. Judgment: Judgment normal. ASSESSMENT AND PLAN: Assessment/Plan Problem List Items Addressed This Visit Bipolar I disorder, current or most recent episode depressed, in partial remission (CMS/HCC) Status post total abdominal hysterectomy and bilateral salpingo-oophorectomy Other Visit Diagnoses Routine general medical examination at a health care facility - Primary Relevant Orders Comprehensive metabolic panel CBC and differential Lipid panel Bipolar affective disorder, currently depressed, moderate (CMS/HCC) Relevant Medications sertraline (Zoloft) 100 MG tablet Encounter for screening for malignant neoplasm of colon Relevant Orders Cologuard colon cancer screening Breast screening Relevant Orders Bilateral screening mammogram with tomosynthesis Encounter for screening mammogram for malignant neoplasm of breast Relevant Orders Bilateral screening mammogram with tomosynthesis As of your wellness visit , the medical team reviewed your chart and chronic problems and treatment. Your information regarding healthy diet, activity, immunizations, depression screening, cancer screens and risk factors for disease were reviewed or addressed Assessment & Plan 1. Depression. She reports feeling down and experiencing increased sleep, including naps during the day. No thoughts of self-harm were noted. The dosage of sertraline will be increased to 100 mg daily. She is encouraged to engage in regular physical activity and maintain a balanced diet. 2. Left knee pain. She reports persistent pain in her left knee, which worsens at night and after prolonged activity. She received a shot from Dr. Jesus, which provided limited relief. An x-ray has been recommended by Dr. Jesus to further evaluate the condition. She is advised to follow up with Dr. Jesus for the x-ray and subsequent management. 3. Health maintenance. She is due for colon cancer screening and prefers the Cologuard test. A mammogram has also been ordered. Fasting blood work will be conducted today. 4. Weight management. She is advised to avoid eating after 7:00 PM, ensure a substantial breakfast, and incorporate a variety of fruits and vegetables into her diet. Lean proteins are recommended to enhance her overall well-being. Follow-up The patient will follow up in 1 month. PROCEDURE The patient received an injection from Dr. Jseus for left knee pain, which provided partial relief. documented in this encounter [facility] 01-28-2024 History of Present illness Narrative Associated Order(s): L Inj/Asp: L knee Post-Procedure Diagnose(s): Primary osteoarthritis of left knee Images from the original note were not included. HISTORY OF PRESENT ILLNESS: EST PT Florencia Ang is an 43 y.o. @ female. (EST PT) RECHECK (L) KNEE ; S/P MDP 01/15/24 WITH 50% IMPROVEMENT ~2 WKS (MID 12/2023). WORKED 8 HR SHIFT STANDING, PAIN SINCE. XRAY EPIC 07/25/22 HX IA INJECTION IN LT KNEE- LITTLE RELIEF HX MDP, MDP 01/15/24 PAIN IS ANTERIOR MEDIAL KNEE, WORSE WHEN SHE FIRST GETS OUT OF BED, HAS IMPROVED SINCE SINCE THE INJECTION. DENIES RADIATION. INCREASES WITH BENDING, PRESSURE AND WALKING. TAKING IBU PRN, NOT MUCH RELIEF. TRIED ICE/HEAT AND VOLTAREN, NO RELIEF. +POPPING. DENIES N/T. MINIMAL GRINDING AND SWELLING MEDIAL. OCCAS GIVING OUT. LESS WAKING AT HS SINCE INJX. USING CANE PRN, NOT TODAY. HAS A BRACE, NOT MUCH RELIEF. PT QUIT HER JOB DUE TO KNEE PAIN, NOT ABLE TO STAND FOR PROLONGED PERIODS ALLERGIES: Allergies Allergen Reactions Lamictal [Lamotrigine] Rash Penicillins Rash HOME MEDICATIONS: Current Outpatient Medications Medication Instructions ARIPiprazole (ABILIFY) 10 mg, Oral, Daily glucosamine-chondroitin 500-400 MG tablet 1 tablet, 3 times daily methylPREDNISolone (Medrol Dospak) 4 MG tablets Follow schedule on package instructions ondansetron ODT (Zofran-ODT) 4 MG disintegrating tablet DISSOLVE 1 (ONE) TABLET on the tongue EVERY 8 HOURS NEEDED FOR NAUSEA AND VOMITING sertraline (ZOLOFT) 50 mg, Oral, Every morning tamsulosin (FLOMAX) 0.4 mg, Daily traMADol (ULTRAM) 50 mg, Every 8 hours PRN PHYSICAL EXAM: Left Knee Exam Tenderness The patient is experiencing tenderness in the medial joint line (improved since MDP). Range of Motion Extension: 0 Flexion: 110 Tests Elmer: Medial - positive Valgus: negative Other Erythema: absent Scars: absent Sensation: normal Pulse: present Swelling: mild Comments: Pain with varus test, no laxity Vitals: There is no height or weight on file to calculate BMI. Tobacco Use: Medium Risk (01/15/2024) Patient History Smoking Tobacco Use: Former Smokeless Tobacco Use: Never Passive Exposure: Not on file Alcohol Use: Not At Risk (01/08/2024) AUDIT-C Frequency of Alcohol Consumption: Monthly or less Average Number of Drinks: 1 or 2 Frequency of Binge Drinking: Never IMAGING: L Inj/Asp: L knee on 01/28/2024 12:02 PM Indications: pain Details: anterolateral approach Medications: 40 mg methylPREDNISolone acetate 40 MG/ML Site was cleaned with isopropyl alcohol Consent was given by the patient. Orders Placed This Encounter Procedures L Inj/Asp This order was created via procedure documentation ASSESSMENT: ICD-10-CM 1. Left knee pain, unspecified chronicity M25.562 2. Primary osteoarthritis of left knee M17.12 PLAN: Patient states that she did have some relief with MDP but still having medial knee pain. I reviewed exam findings with the patient and discussed treatment options, answered questions. I discussed with the patient the option of an injection. I advised the patient of risks associated with an injection including a reaction to medication, infection, failure to improve and possible worsening. The patient demonstrated understanding. Patient requesting injection. Skin Cleansed with alcohol swab. Utilizing aseptic technique patient given 40mg Depomedrol was injected. Patient tolerated this well. Neurovasc intact s/p injection. Post injection care instructions discussed. She will follow up in 4 weeks for RCK. Xray if still painful. Questions answered in laymen terms at the bedside. The diagnosis, home exercise plan and any ongoing restrictions/ recommendations reviewed. If unable to be reached in office, I recommend evaluation at nearest Emergency Room if any symptoms worsened or new symptoms develop for requiring urgent evaluation. Herlinda Ferrari SOFTWARE DEVELOPMENT INTERN-APPLIANCE FIXER documented in this encounter [facility] 01-15-2024 History of Present illness Narrative Images from the original note were not included. NAME: Florencia Ang : 1980 HISTORY OF PRESENT ILLNESS: Florencia Ang is an 43 y.o. @ female. DR IRVIN REFERRAL. LT KNEE PAIN ~2 WKS (MID 12/2023). WORKED 8 HR SHIFT STANDING, PAIN SINCE. XRAY EPIC 07/25/22 HX IA INJECTION IN LT KNEE- LITTLE RELIEF HX MDP PAIN IS MEDIAL KNEE, DENIES RADIATION. INCREASES WITH BENDING, PRESSURE AND WALKING. TAKING IBU. USING ICE. TRIED HEAT AND VOLTAREN, NO RELIEF. +POPPING. DENIES N/T. MINIMAL GRINDING AND SWELLING MEDIAL. OCCAS GIVING OUT. WAKES AT HS. USING CANE PRN, NOT TODAY. HAS A BRACE, NOT MUCH RELIEF. PAST MEDICAL HISTORY: Past Medical History: Diagnosis Date Anxiety ASCUS with positive high risk HPV cervical 2005 Bipolar disorder ([facility]) COVID-19 07/09/2022 Depression ([facility]) 08/25/22 Elective age 17 HPV (human papilloma virus) infection 2007 LGSIL on Pap smear of cervix 2005 coloposcopy Miscarriage 2012 Seasonal allergies PAST SURGICAL HISTORY: Past Surgical History: Procedure Laterality Date BREAST BIOPSY Right 10/2015 CT ANGIOGRAM CHEST 11/20/2020 CT ANGIOGRAM CHEST [facility] DATA LEGACY CT ANGIOGRAM HEART CORONARY 11/18/2020 CT ANGIOGRAM TAVR 11/18/2020 EGD 1991 swallowed a quarter LAPAROSCOPIC HYSTERECTOMY 01/2022 [facility], BSO OTHER SURGICAL HISTORY 02/1997 TONSILLECTOMY WISDOM TOOTH EXTRACTION 2002 ALLERGIES: Allergies Allergen Reactions Lamictal [Lamotrigine] Rash Penicillins Rash HOME MEDICATIONS: Current Outpatient Medications Medication Instructions ARIPiprazole (ABILIFY) 10 mg, Oral, Daily glucosamine-chondroitin 500-400 MG tablet 1 tablet, 3 times daily methylPREDNISolone (Medrol Dospak) 4 MG tablets Follow schedule on package instructions ondansetron ODT (Zofran-ODT) 4 MG disintegrating tablet DISSOLVE 1 (ONE) TABLET on the tongue EVERY 8 HOURS NEEDED FOR NAUSEA AND VOMITING sertraline (ZOLOFT) 50 mg, Oral, Every morning tamsulosin (FLOMAX) 0.4 mg, Daily traMADol (ULTRAM) 50 mg, Every 8 hours PRN Vitals: There is no height or weight on file to calculate BMI. PHYSICAL EXAM: Left Knee Exam Tenderness The patient is experiencing tenderness in the medial joint line. Range of Motion Extension: -5 Flexion: 110 Tests Elmer: Medial - positive Valgus: negative Other Erythema: absent Scars: absent Sensation: normal Pulse: present Swelling: mild Comments: Pain with varus test, no laxity IMAGING: XR knees anteroposterior standing bilateral Narrative: XR KNEES ANTEROPOSTERIOR STANDING BILATERAL : 07/25/2022 11:55 AM CLINICAL HISTORY: OA protocol. COMPARISON: None available. TECHNIQUE: ROUTINE FINDINGS: Moderate joint space narrowing is seen in the medial compartment of the right knee. Mild to moderate joint space narrowing is seen in the left knee. There are also hypertrophic spurs that are small seen on the lateral aspect of the left knee. There is no evidence for acute fracture. Impression: DEGENERATIVE CHANGES ARE SEEN WITHOUT EVIDENCE FOR FRACTURE. ELECTRONICALLY SIGNED BY: Yudy Choe DO Procedures ASSESSMENT: ICD-10-CM 1. Left knee pain, unspecified chronicity M25.562 methylPREDNISolone (Medrol Dospak) 4 MG tablets 2. Internal derangement of left knee M23.92 Ambulatory referral to Orthopaedic Surgery PLAN: I reviewed xray findings with the patient and discussed treatment options, answered questions. She states that she has had MDP in the past with good relief. We will send in order for MDP and have patient return in 2 weeks. If still painful consider IA injection of knee. Questions answered in laymen terms at the bedside. The diagnosis, home exercise plan and any ongoing restrictions/ recommendations reviewed. If unable to be reached in office, I recommend evaluation at nearest Emergency Room if any symptoms worsened or new symptoms develop for requiring urgent evaluation. Herlinda Ferrari APRN-APPLIANCE FIXER documented in this encounter [facility] 01-14-2024 Telephone encounter Note Approvals with refills [facility] 01-14-2024 Miscellaneous Notes Approvals with refills documented in this encounter [facility] 01-09-2024 History of Present illness Narrative Images from the original note were not included. Florencia Ang is a 43 y.o. female presents with chief complaint of ER Follow-up and Knee Pain (Patient presents today for left knee pain. Patient states that it has been ongoing for 4 days and she is having trouble walking. Patient has tried otc pain medication, heat/ice, and tramadol for the pain with no relief. ) HPI: HPI Flowsheet Row Telephone from 01/07/2024 in [facility] with Sheryl Garcia MA Hospital Information ED, Hospital or Custodial Facility Discharge? ED Patient has been contacted within 1 week of being seen in the ED Yes Diagnosis Kidney Stone Discharge Date 01/05/24 Discharged To: Home Setting Discharge Hospital [facility] Engagement Call Start Time 1616 Admission Date 01/05/24 Medications Discharge medications reviewed and reconciled from hospital? Yes Is the patient having any side effects they believe may be caused by any medication additions or changes? No Does the patient have all medications ordered at discharge? Yes Is the patient taking all medications as directed (includes completed medication regime)? Yes Appointments Does the patient have a primary care provider? Yes Has the patient kept scheduled appointments due by today? Yes Self Management Patient Teaching Does the patient have access to their discharge instructions? Yes What is the patient's perception of their health status since discharge? Same Is the patient/caregiver able to teach back the hierarchy of who to call/visit for symptoms/problems? PCP, Specialist, Home Health nurse, Urgent Care, ED, 911 Yes Wrap Up Call End Time 1638 History of Present Illness The patient presents for evaluation of multiple medical concerns. She is accompanied by an adult male. She has a history of kidney stones, with the most recent episode occurring in 01/2023. The stone, measuring 3 mm, was passed naturally. She has been advised to consult a urologist. Blood work was conducted during her hospital stay. She has been experiencing knee pain, which has previously led to a two-month work absence. The pain intensified after an 8-hour shift at [employer], where she stood for the entire duration. She has received cortisone injections in the past, which provided temporary relief. Prednisone was also effective in reducing inflammation. Physical therapy has been beneficial, but the pain recurs, particularly when standing for extended periods or climbing ladders. Ibuprofen, taken at a dose of 600 mg every 6 hours, provides some relief. She has tried using knee braces, but they have not been effective. The pain is severe enough to disrupt her sleep. She has been applying ice packs for the past 4 days. Tramadol, prescribed for her kidney condition, did not alleviate the pain. She has been monitoring her blood pressure at home. She has made dietary changes, including reducing her intake of red meat, sugar, and salt, and increasing her consumption of fruits. She has also switched to a lower-carb diet due to her diabetes. FAMILY HISTORY Her father has high blood pressure. SUBJECTIVE: MEDICATIONS: Current Outpatient Medications Medication Instructions ARIPiprazole (ABILIFY) 10 mg, Oral, Daily glucosamine-chondroitin 500-400 MG tablet 1 tablet, 3 times daily ondansetron ODT (Zofran-ODT) 4 MG disintegrating tablet DISSOLVE 1 (ONE) TABLET on the tongue EVERY 8 HOURS NEEDED FOR NAUSEA AND VOMITING sertraline (Zoloft) 50 MG tablet take 1 tablet by mouth every morning tamsulosin (FLOMAX) 0.4 mg, Daily traMADol (ULTRAM) 50 mg, Every 8 hours PRN ALLERGIES: Allergies Allergen Reactions Lamictal [Lamotrigine] Rash Penicillins Rash SURGICAL HISTORY: Past Surgical History: Procedure Laterality Date BREAST BIOPSY Right 10/2015 CT ANGIOGRAM CHEST 11/20/2020 CT ANGIOGRAM CHEST [facility] DATA LEGACY CT ANGIOGRAM HEART CORONARY 11/18/2020 CT ANGIOGRAM TAVR 11/18/2020 EGD 1991 swallowed a quarter LAPAROSCOPIC HYSTERECTOMY 01/2022 [facility], BSO OTHER SURGICAL HISTORY 02/1997 TONSILLECTOMY WISDOM TOOTH EXTRACTION 2002 FAMILY HISTORY: Family History Problem Relation Name Age of Onset Depression Mother Tanja takes Effexor Asthma Mother Tanja Mental illness Mother Tanja Hyperlipidemia Father Joe Diabetes Father Joe Prostate cancer Father Joe Other (hypertension) Father Joe No Known Problems Sister No Known Problems Brother Stroke Maternal Grandfather Vikas Cancer Paternal Grandmother Samantha Depression Mother's Sister Patricia Anxiety disorder Mother's Sister Patricia SOCIAL HISTORY: Social History Tobacco Use Smoking status: Former Current packs/day: 0.00 Average packs/day: 1 pack/day for 10.0 years (10.0 ttl pk-yrs) Types: Cigarettes, Cigars Start date: 1993 Quit date: 12/02/2013 Years since quittin.1 Smokeless tobacco: Never Substance Use Topics Alcohol use: Yes Alcohol/week: 1.0 standard drink of alcohol Types: 1 Standard drinks or equivalent per week Comment: caffeine intake : 2-3 cups per day Drug use: Never Depression: Not at risk (01/09/2024) PHQ-2 PHQ-2 Score: 0 REVIEW OF SYMPTOMS: Review of Systems Respiratory: Negative. Cardiovascular: Negative. OBJECTIVE: Visit Vitals BP (!) 142/94 (BP Location: Right arm, Patient Position: Sitting, BP Cuff Size: Large adult) Pulse 92 Resp 18 Ht 5' 4 Wt 273 lb 3.2 oz SpO2 99% BMI 46.89 kg/m Smoking Status Former BSA 2.37 m Physical Exam Constitutional: Appearance: Normal appearance. She is normal weight. HENT: Head: Normocephalic and atraumatic. Nose: Nose normal. Mouth/Throat: Mouth: Mucous membranes are moist. Eyes: Pupils: Pupils are equal, round, and reactive to light. Cardiovascular: Rate and Rhythm: Normal rate and regular rhythm. Heart sounds: No murmur heard. Pulmonary: Effort: Pulmonary effort is normal. Breath sounds: Normal breath sounds. No wheezing or rhonchi. Musculoskeletal: General: No swelling. Cervical back: Normal range of motion and neck supple. Right lower leg: No edema. Left lower leg: No edema. Comments: Left knee with medial laxity no effusion mild crepitus Skin: General: Skin is warm and dry. Findings: No rash. Neurological: Mental Status: She is alert and oriented to person, place, and time. Sensory: No sensory deficit. Gait: Gait normal. Psychiatric: Mood and Affect: Mood normal. Thought Content: Thought content normal. Judgment: Judgment normal. ASSESSMENT AND PLAN: Assessment/Plan Problem List Items Addressed This Visit Internal derangement of left knee Relevant Orders Ambulatory referral to Orthopaedic Surgery Other Visit Diagnoses Nephrolithiasis - Primary Relevant Orders Uric acid Elevated glucose Relevant Orders Hemoglobin A1c Assessment & Plan 1. Knee pain. The patient's knee pain is likely due to irritation of the cartilage inside the knee. She reports immense pain after an 8-hour shift and difficulty walking. A referral to an orthopedic surgeon, Anibal Cohen in [place], has been made. A note for work leave until the next week has been provided. She has been advised to apply ice packs twice an hour and to use Voltaren for pain relief. She has also been advised to use a cane if needed. 2. Hypertension. Her elevated blood pressure may be a result of her current pain. She has been advised to monitor her blood pressure at home three times a week and report the readings in a week. Dietary modifications, including increased intake of fruits and vegetables, reduced consumption of processed foods and lean proteins, and avoidance of fast food and junk food, have been recommended. 3. Kidney stone. The patient passed a 3 mm kidney stone recently. Blood work will be checked to determine if the stone is calcium or uric acid-based. Follow-up Return in a week for blood pressure readings. documented in this encounter [facility] 04-05-2023 History of Present illness Narrative Florencia Ang is a 43 y.o. female presents with chief complaint of Heart Problem HPI: HPI Patient states she woke up last night around 10 and her pulse was 130-135 for about 20 mins, she states it came down to 110 for about 10 mins. Once she sat down and relaxed it came down into the 70s. She states she felt jittery as well. Didn't go to work last night due to feeling like this. Did have 2 cups of coffee around 430-5 last night. She states she did switch shifts this past week and currently on midnights. Denies any chest pain, she states she could feel the pulse in chest, neck, and arm. SUBJECTIVE: MEDICATIONS: Current Outpatient Medications Medication Instructions ARIPiprazole (ABILIFY) 10 mg, Oral, Daily sertraline (Zoloft) 50 MG tablet take 1 tablet by mouth every morning REVIEW OF SYMPTOMS: Review of Systems Constitutional: Negative. Eyes: Positive for photophobia. Respiratory: Negative. Cardiovascular: Negative. Gastrointestinal: Negative. Musculoskeletal: Negative. Neurological: Negative. Psychiatric/Behavioral: Negative. OBJECTIVE: Visit Vitals BP 130/70 Pulse 78 Ht 5' 4 Wt 260 lb 12.8 oz SpO2 97% BMI 44.77 kg/m Smoking Status Former BSA 2.31 m Physical Exam Constitutional: Appearance: Normal appearance. She is normal weight. HENT: Head: Normocephalic and atraumatic. Nose: Nose normal. Mouth/Throat: Mouth: Mucous membranes are moist. Eyes: Pupils: Pupils are equal, round, and reactive to light. Cardiovascular: Rate and Rhythm: Normal rate and regular rhythm. Heart sounds: No murmur heard. Pulmonary: Effort: Pulmonary effort is normal. Breath sounds: Normal breath sounds. No wheezing or rhonchi. Musculoskeletal: General: No swelling. Cervical back: Normal range of motion and neck supple. Right lower leg: No edema. Left lower leg: No edema. Skin: General: Skin is warm and dry. Findings: No rash. Neurological: Mental Status: She is alert and oriented to person, place, and time. Sensory: No sensory deficit. Gait: Gait normal. Psychiatric: Mood and Affect: Mood normal. Thought Content: Thought content normal. Judgment: Judgment normal. ASSESSMENT AND PLAN: Assessment/Plan Problem List Items Addressed This Visit None Visit Diagnoses Tachycardia - Primary Work up as below. Limit caffiene to 1 beverage every 24 hours Relevant Orders TSH W/REFLEX TO FT4 CBC and differential Comprehensive metabolic panel Cardiac event monitor Altered urinary elimination pattern Nl ua documented in this encounter [facility] Healthcare Evaluation + Plan note No data available for this section [facility] [place] Evaluation note No assessment inform ation available [facility] Work Phone: Evaluation note Diagnosis Tachycardia- Primary Unspecified tachycardia Altered urinary elimination pattern documented in this encounter [facility]* Diagnosis Nephrolithiasis- Primary Calculus of kidney Elevated glucose Other abnormal glucose Internal derangement of left knee documented in this encounter [facility]* Diagnosis Bipolar I disorder, current or most recent episode depressed, in partial remission (CMS/HCC) Bipolar affective disorder, currently depressed, moderate (CMS/HCC) Bipolar I disorder, most recent episode (or current) depressed, moderate documented in this encounter [facility]* Diagnosis Left knee pain, unspecified chronicity Internal derangement of left knee documented in this encounter [facility]* Diagnosis Primary osteoarthritis of left knee- Primary Left knee pain, unspecified chronicity documented in this encounter [facility]* Diagnosis Routine general medical examination at a health care facility- Primary Bipolar I disorder, current or most recent episode depressed, in partial remission (CMS/HCC) Status post total abdominal hysterectomy and bilateral salpingo-oophorectomy Bipolar affective disorder, currently depressed, moderate (CMS/HCC) Bipolar I disorder, most recent episode (or current) depressed, moderate Encounter for screening for malignant neoplasm of colon Breast screening Breast screening, unspecified Encounter for screening mammogram for malignant neoplasm of breast documented in this encounter [facility]* Diagnosis Hyperlipidemia, unspecified hyperlipidemia type (CMS/HCC)- Primary documented in this encounter [facility]* Diagnosis Primary osteoarthritis of left knee- Primary Right knee pain, unspecified chronicity Left knee pain, unspecified chronicity Primary osteoarthritis of right knee documented in this encounter [facility]* Diagnosis Primary osteoarthritis of right knee- Primary Primary osteoarthritis of left knee documented in this encounter [facility]ospital Discharge instructions No data available for this section [facility] [place] Progress note No data available for this section [facility] Reg[facility] Summary Purpose Family History Relationship Condition Age at Onset Recorded Date/T diana father Hypertension Unknown Type 2 diabetes mellitus Unknown Not Specified Hyperlipidemia Unknown Heart disease Unknown brother Pulmonary embolism Unknown Deep vein thrombosis (DVT) Unknown Advance Directives Advance Directive Response Recorded Date/ Time Advance Directives No January 10:03am Chief Complaint and Reason for Visit Chief Complaint Intramural Myoma of Uterus, Right Ovarian Cyst, Me Chief Complaint Intramural Myoma of Uterus, Right Ovarian Cyst, Me Intramural Myoma of Uterus, Right Ovarian Cyst, Me Reason for Referral Specialty Diagnoses / Procedures Referred By Contac t Referred To Contact Cardiology Diagnoses Tachycardia Procedures Cardiac event monitor Telma Irvin MD [address] [facility] [place] [address] Referral ID Status Reason Start Date Expiration Date V isits Requested Visits Authorized [id number] Pending Review 04/05/2023 10/02/2023 1 1 Additional Source Comments INFORMATION SOURCE (unrecogn ized section and content) DATE CREATED AUTHOR 09/27/2021 [facility] DATE CREATED AUTHOR AUTHOR'S ORGANIZ ATION 11/24/2021 [facility] DATE CREATED AUTHOR AUTHOR'S ORGANIZ ATION 03/25/2022 [facility] DATE CREATED AUTHOR AUTHOR'S ORGANIZ ATION 03/04/2024 [facility] DATE CREATED AUTHOR AUTHOR'S ORGANIZ ATION 06/30/2024 [facility] EPIC Care Teams (unrecognized sec tion and content) Team Status: Inactive Member Role Status Dates Sarahi Gutierrez MD Attending Provider Active Telma Irvin MD Primary Care Provider Active Team Status: Active Member Role Status Dates Telma Irvin MD Primary Care Provider Active Barrel Inspector Relationship Specialty Start Date End Date Telma Irvin MD [address] [facility] [place] [address] PCP - General Family Medicine 07/10/22 Barrel Inspector Relationship Specialty Start Date End Date Telma Irvin MD [address] [facility] [place] [address] PCP - General Family Medicine 07/10/22 Barrel Inspector Relationship Specialty Start Date End Date Telma Irvin MD [address] [facility] [place] [address] PCP - General Family Medicine 07/10/22 Barrel Inspector Relationship Specialty Start Date End Date Telma Irvin MD [address] [facility] [place] [address] PCP - General Family Medicine 07/10/22 Barrel Inspector Relationship Specialty Start Date End Date Telma Irvin MD [address] [facility] [place] [address] PCP - General Family Medicine 07/10/22 Barrel Inspector Relationship Specialty Start Date End Date Telma Irvin MD [address] [facility] [place] [address] PCP - General Family Medicine 07/10/22 Barrel Inspector Relationship Specialty Start Date End Date Telma Irvin MD [address] [facility] [place] [address] PCP - General Family Medicine 07/10/22 Barrel Inspector Relationship Specialty Start Date End Date Telma Irvin MD [address] [facility] [place] [address] PCP - General Family Medicine 07/10/22 Barrel Inspector Relationship Specialty Start Date End Date Telma Irvin MD [address] [facility] [place] [address] PCP - General Family Medicine 07/10/22 Barrel Inspector Relationship Specialty Start Date End Date Telma Irvin MD [address] [facility] [place] [address] PCP - General Family Medicine 07/10/22 Goals (unrecognized section and content) Goals may be documented in a n alternate sectionGoals may be documented in an alternate section No data available for this section Reason for Visit (unrecogniz ed section and content) Reason Comments Heart Problem Reason Comments ER Follow-up Knee Pain Patient presents tod ay for left knee pain. Patient states that it has been ongoing for 4 days and she is having trouble walking. Patient has tried otc pain medication, heat/ice, and tramadol for the pain with no relief. Reason Comments Pain Specialty Diagnoses / Procedures Referred By Davidson t Referred To Contact Orthopaedic Surgery Diagnoses Internal derangement of left knee Telma Irvin MD [address] [place] [address] Phone: tel: fax: Rufus Cohen PA [address] [address] Phone: tel: fax: Referral ID Status Reason Start Date Expiration Date V isits Requested Visits Authorized [id number] Closed Specialty Services Required 01/09/2024 07/07/2024 1 1 Reason Comments Pain Reason Comments Annual Exam Depression Reason Comments Pain Reason Onset Date Comments asking about pain medication 08/21/2024 FOR RECORDS PERTAINING TO PATIENTS WHO ARE OR HAVE BEEN ENROLLED IN A CHEMICAL DEPENDENCY/SUBSTANCEABUSE PROGRAM, SOME INFORMATION MAY BE OMITTED. This clinical summary was aggregated from multiple sources. Caution should be exercised in using it in the provision of clinical care. This summary normalizes information from multiple sources, and as a consequence, information in this document may materially change the coding, format and clinical context of patient data. In addition, data may be omitted in some cases. CLINICAL DECISIONS SHOULD BE BASED ON THE PRIMARY CLINICAL RECORDS. [email or web address] provides no warranty or guarantee of the accuracy or completeness of information in this document.
--- NOTE | 2024-09-12 22:44 | ED.EXTPRO1 ---
HPI - Extremity Problem General Chief complaint: Extremity Problem, Nontraumatic Stated complaint: Lower Pain Time Seen by Provider: 09/12/24 22:40 Source: patient Mode of arrival: walk-in Limitations: no limitations History of Present Illness HPI Narrative: presents complaining of bilat . knee arthritic flare. State she is not able to get another steroid injection in her knees until 10/13. Had to leave work tonight because of increased pain of her knees. No fever or swelling. no systemic symptoms. States usually prednisone helps with the flare and is requesting prednisone Related Data Home Medications ?Medication ?Instructions ?Recorded ?Confirmed aripiprazole 10 mg tablet 10 mg PO DAILY 01/05/24 09/12/24 sertraline 50 mg tablet 100 mg PO DAILY 01/05/24 09/12/24 atorvastatin 20 mg tablet 20 mg PO HS 09/12/24 09/12/24 Previous Rx's ?Medication ?Instructions ?Recorded cetirizine 5 mg-pseudoephedrine ER 1 tab PO Q12H PRN nasal congestion 12/31/22 120 mg tablet,extended #14 tabs release,12hr (Zyrtec-D) ondansetron 4 mg disintegrating 4 mg PO Q8H PRN nausea and 01/05/24 tablet vomiting 48 hours #10 tabs tamsulosin 0.4 mg capsule (Flomax) 0.4 mg PO DAILY #10 caps 01/05/24 Allergies Allergy/AdvReac Type Severity Reaction Status Date / Time lamotrigine (From Lamictal) Allergy Severe Rash Verified 09/12/24 22:33 Penicillins Allergy Severe Rash Verified 09/12/24 22:33 walnut AdvReac Severe heart burn Verified 09/12/24 22:33 Review of Systems ROS Status of ROS 10 or more systems reviewed and unremarkable except as noted in history and below PFSH PFSH Social History Smoking status: Former smoker Little interest or pleasure in doing things: not at all Feeling down, depressed, or hopeless: not at all Exam Constitutional Vital Signs, click to edit/add: Last Vital Signs Temp 98.6 F 09/12/24 22:28 Pulse 89 09/12/24 22:28 Resp 18 09/12/24 22:28 BP 142/81 H 09/12/24 22:28 Pulse Ox 96 09/12/24 22:28 O2 Del Method Room Air 09/12/24 22:28 Common normals: no apparent distress, oriented x3, no limitations, healthy appearing, alert and well nourished [facility] Common normals: normocephalic and head/scalp atraumatic Respiratory Common normals: normal respiratory effort, no retractions, no use of accessory muscles and clear to auscultation bilaterally Cardio Common normals: regular rate, regular rhythm, S1 normal heart sound and S2 normal heart sound Extremity Other: bilat knee without effusion or erythema. not warm has arthritic deformity-mild Neuro Common normals: oriented x3, CN's II-XII intact bilaterally, moves all extremities and no focal motor deficits Psych Appearance: grossly normal Course Vital Signs Vital signs: Vital Signs Temperature 98.6 F 09/12/24 22:28 Pulse Rate 89 09/12/24 22:28 Respiratory Rate 18 09/12/24 22:28 Blood Pressure 142/81 H 09/12/24 22:28 Pulse Oximetry 96 09/12/24 22:28 Oxygen Delivery Method Room Air 09/12/24 22:28 Temperature 98.6 F 09/12/24 22:28 Pulse Rate 89 09/12/24 22:28 Respiratory Rate 18 09/12/24 22:28 Blood Pressure 142/81 H 09/12/24 22:28 Pulse Oximetry 96 09/12/24 22:28 Oxygen Delivery Method Room Air 09/12/24 22:28 MDM - Extremity (Nontraumatic) MDM Narrative Medical decision making narrative: presents with acute arthritic flare pain of both knees. Requesting prednisone as it has helped in the past. No fever. knee exam without findings to suggest infection. Given dose of prednisone and discharged home Discharge Plan Discharge Chief Complaint: Extremity Problem, Nontraumatic Clinical Impression: Osteoarthritis Patient Disposition: Home, Self-Care Prescriptions / Home Meds: No Action cetirizine-pseudoephedrine [Zyrtec-D] 5-120 mg tablet extended release 12 hr 1 tab PO Q12H PRN (Reason: nasal congestion) Qty: 14 0RF aripiprazole 10 mg tablet 10 mg PO DAILY sertraline 50 mg tablet 100 mg PO DAILY tamsulosin [Flomax] 0.4 mg capsule 0.4 mg PO DAILY Qty: 10 0RF ondansetron 4 mg tablet,disintegrating 4 mg PO Q8H PRN (Reason: nausea and vomiting) 2 Days Qty: 10 0RF atorvastatin 20 mg tablet 20 mg PO HS Print Language: Sammarinese Instructions: Osteoarthritis (ED) Referrals: KRISTA CALLOWAY [Primary Care Provider, Family Practice] - 1 week
[2024-09-12] MEDS: PREDNISONE 20 MG TABLET 60 MG PO (22:53)
== END 2024-09-12 22:58 | disposition home or self-care (01) ==
PROVIDERS: Emergency Provider Internal Medicine; PCP Family Medicine
DX: M17.0 Bilateral primary osteoarthritis of knee (principal)
CPT/HCPCS: 99283; J7512